=== PATIENT | male | born 1955 | race African-American/Black ===

== ENCOUNTER → 2017-04-04 | Outpatient (CLI) | payer MEDICARE, OTHER ==
--- NOTE | 2017-04-04 08:38 | US ---
EXAMINATION TYPE: US gallbladder DATE OF EXAM: 04/04/2017 COMPARISON: NONE CLINICAL HISTORY: R10.84 Abd Pain. Rt sided pain x 6 months EXAM MEASUREMENTS: Liver Length: 15.8 cm Gallbladder Wall: 0.2 cm CBD: 0.4 cm Right Kidney: 9.6 x 4.9 x 4.7 cm Pancreas: wnl Liver: wnl Gallbladder: fundal fold seen, wnl Evidence for sonographic Hicks's sign: no CBD: wnl Right Kidney: 2.8cm simple appearing cyst seen Limited views of the pancreas are normal. The liver is normal in size without biliary dilatation. The gallbladder is unremarkable without biliary dilatation. The gallbladder wall measures 2.6 mm. The distal common hepatic duct measures 3.8 cm. There is a simple appearing, 2.8 cm cyst seen in the upper pole of the right kidney. IMPRESSION: SIMPLE APPEARING RIGHT RENAL CYST.
== END | disposition home or self-care (01) ==
LOC: RADUSWWP 07:59
PROVIDERS: ATTEND Family Medicine
DX: N28.1 Cyst of kidney, acquired (principal)
CPT/HCPCS: 76705

== ENCOUNTER → 2018-01-08 | Outpatient (CLI) | payer MEDICARE ==
--- NOTE | 2018-01-08 13:24 | CT ---
EXAMINATION TYPE: CT brain wo con DATE OF EXAM: 01/08/2018 COMPARISON: NONE HISTORY: Patient complains of headache and left side neck and arm pain. CT DLP: 750.9 mGycm Automated exposure control for dose reduction was used. FINDINGS: Mild generalized degenerative change. There is low-attenuation within the right occipital lobe compat ible with remote ischemia. Calvarium intact. No midline shift or acute hemorrhage. Faint periventricular low attenuation is nons pecific. Likely in the basis of remote microvascular ischemia. Changes of chronic sinusitis noted. IMPRESSION: MILD DEGENERATIVE CHANGE. THERE IS EVIDENCE OF REMOTE ISCHEMIA INVOLVING THE RIGHT OCCIPITAL LOBE. RE COMMEND MRI FOLLOW-UP.
--- NOTE | 2018-01-08 16:56 | XR ---
EXAMINATION TYPE: XR cervical spine comp DATE OF EXAM: 01/08/2018 COMPARISON: NONE HISTORY: 62-year-old male left arm numbness, cervicalgia TECHNIQUE: 6 views FINDINGS: Multilevel facet and uncovertebral joint arthropathy is present. Moderate bony neuroforaminal narrowi ng on the right at C5-C6. Mild bony neuroforaminal narrowing on the left at C4-C5, C5-C6, and C6-C7. Moderate endplate spondylosis C5-C6. Alignment shows grade 1 retrolisthesis at C5-C6. Otherwise, sg cory of the alignment is maintained. Normal odontoid view. IMPRESSION: 1. Moderate endplate spondylosis at C5-C6 and moderate to advanced uncovertebral joint/facet arthropa thy throughout. 2. Changes result in moderate right-sided neuroforaminal stenosis at C5-C6 and mild at multiple level s in the mid to lower cervical spine 3. grade 1 retrolisthesis at C5-C6.
== END | disposition home or self-care (01) ==
LOC: RADCTMAIN 12:20
PROVIDERS: ATTEND Physician Assistant
DX: M99.71 Connective tissue and disc stenosis of intervertebral foramina of cervical region (principal); M43.12 Spondylolisthesis, cervical region; M47.812 Spondylosis without myelopathy or radiculopathy, cervical region; M46.82 Other specified inflammatory spondylopathies, cervical region; G31.9 Degenerative disease of nervous system, unspecified
CPT/HCPCS: 70450; 72050

== ENCOUNTER 2018-02-17 13:29 | Inpatient (IN) | payer MEDICARE ==
[2018-02-17] MEDS ORDERED: SODIUM CHLORIDE 0.9% 1,000 ML IV STA ×2 (13:32)
[2018-02-17] MEDS ORDERED: AMIODARONE 450 MG in DEXTROSE 5% IN WATER 250 ML IV ONE ×2 (13:32)
[2018-02-17] MEDS ORDERED: DEXTROSE 5% IN WATER 100 ML with AMIODARONE 150 MG IV ONE (13:32)
--- NOTE | 2018-02-17 13:47 | XR ---
EXAMINATION TYPE: XR chest 1V portable DATE OF EXAM: 02/17/2018 COMPARISON: Chest x-ray June 10, 2016 HISTORY: Dyspnea TECHNIQUE: Single AP portable frontal view of the chest is obtained. FINDINGS: Sternal wires with metallic cardiac valve is redemonstrated. There is more prominent cardi omegaly. There is new mild to moderate central vascular congestion. There is no suspicious new focal airspace opacity, pleural effusion, or pneumothorax. The osseous structures are intact. IMPRESSION: Suspect CHF exacerbation as there is more prominent cardiomegaly with new mild to modera te central vascular congestion.
[2018-02-17] MEDS ORDERED: ONDANSETRON 4 MG/2 ML VIAL IVP STA (13:48)
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
[2018-02-17 13:51] LABS: Glucose,Whole Blood 207 mg/dL (75-99)
[2018-02-17 13:53] LABS: Basophils % (A) 0 %; Eosinophils # (A) 0.3 k/uL (0-0.7); Eosinophils % (A) 4 %; HCT 44.5 % (39.0-53.0); HGB 14.4 gm/dL (13.0-17.5); Lymphocytes # (A) 3.9 k/uL (1.0-4.8); Lymphocytes % (A) 44 %; MCH 28.5 pg (25.0-35.0); MCHC 32.5 g/dL (31.0-37.0); MCV 87.9 fL (80.0-100.0); Mean Platelet Volume 7.5; Monocytes # (A) 0.6 k/uL (0-1.0); Monocytes % (A) 6 %; Neutrophils # (A) 3.9 k/uL (1.3-7.7); Neutrophils % (A) 44 %; Platelet Count 212 k/uL (150-450); RBC 5.06 m/uL (4.30-5.90); RDW 14.2 % (11.5-15.5); WBC 8.9 k/uL (3.8-10.6)
[2018-02-17 14:05] LABS: Albumin 4.6 g/dL (3.5-5.0); Calcium 9.4 mg/dL (8.4-10.2); Magnesium 2.2 mg/dL (1.6-2.3); Phosphorus 4.7 mg/dL (2.5-4.5); Potassium 3.4 mmol/L (3.5-5.1); Total Bilirubin 1.2 mg/dL (0.2-1.3); Total Protein 7.8 g/dL (6.3-8.2)
[2018-02-17] MEDS ORDERED: ASPIRIN 81 MG PO STA (14:07)
[2018-02-17] MEDS ORDERED: POTASSIUM CHLORIDE 20 MEQ in WATER FOR INJECTION 1 100ML.BAG IVPB STA (14:09)
[2018-02-17 14:25] LABS: INR 1.2 (<1.2); Partial Thromboplastin Time 22.1 sec (22.0-30.0); Prothrombin Time 11.4 sec (9.0-12.0)
[2018-02-17 14:28] LABS: Creatine Kinase MB 2.4 ng/mL (0.0-2.4)
[2018-02-17 14:35] LABS: D-Dimer 1.53 mg/L FEU (<0.60)
[2018-02-17] MEDS ORDERED: HEPARIN SODIUM,PORCINE 5,000 UNIT/ML 1 ML VIAL IV STA (14:38)
[2018-02-17 14:41] LABS: Troponin I 0.042 ng/mL (0.000-0.034)
[2018-02-17] MEDS ORDERED: NITROGLYCERIN SL TABS 0.4 MG TAB SUBLINGUAL PRN ×2 (14:43→14:46)
[2018-02-17] MEDS ORDERED: ASPIRIN 325 MG TAB PO STA (14:43)
[2018-02-17] MEDS ORDERED: ATORVASTATIN 80 MG TAB PO STA (14:43)
[2018-02-17] MEDS ORDERED: SODIUM CHLORIDE 0.9% 1,000 ML in EMPTY BAG 1 BAG IV ONE (14:43)
[2018-02-17] MEDS ORDERED: HEPARIN SODIUM,PORCINE 5,000 UNIT/ML 1 ML VIAL IV PRN (14:46)
[2018-02-17] MEDS ORDERED: LIDOCAINE 2% INJ 20 MG/ML (20 ML MDV) ONE (14:47)
[2018-02-17] MEDS ORDERED: HEPARIN SOD,PORK IN 0.45% NACL 25,000 UNIT in 0.45% NACL 1 500ML.BAG IV SCH (15:00)
[2018-02-17] MEDS ORDERED: MIDAZOLAM 2 MG/2 ML VIAL ONE (15:00)
[2018-02-17] MEDS ORDERED: diphenhydrAMINE 50 MG/ML 1 ML VIAL ONE (15:00)
[2018-02-17] MEDS ORDERED: LIDOCAINE 2% INJ 20 MG/ML SQ ONE (15:25)
[2018-02-17] MEDS ORDERED: diphenhydrAMINE 50 MG/ML 1 ML VIAL IVP ONE (15:26)
[2018-02-17] MEDS ORDERED: MIDAZOLAM 2 MG/2 ML VIAL IVP ONE (15:27)
[2018-02-17] MEDS ORDERED: IOPAMIDOL-370 100ML BTL INJ ONE (15:47)
[2018-02-17] MEDS ORDERED: MORPHINE SULF 5MG/10ML VL IV ONE (15:51)
[2018-02-17] MEDS ORDERED: IOPAMIDOL-370 50ML BTL INJ ONE (15:51)
[2018-02-17] MEDS ORDERED: SODIUM CHLORIDE 0.9% 500 ML IV ONE (15:54)
[2018-02-17] MEDS ORDERED: SODIUM CHLORIDE 0.9% 1,000 ML IV ONE (15:54)
[2018-02-17] MEDS ORDERED: RX INFO: IV CONTRAST WAS GIVEN 1 EACH MISC MISCELLANE PRN (16:03)
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
[2018-02-17 16:43] LABS: Glucose,Whole Blood 144 mg/dL (75-99)
--- NOTE | 2018-02-17 17:17 | CC ---
CARDIAC CATHETERIZATION REPORT DATE OF SERVICE: 02/17/2018 PROCEDURE: Left heart catheterization, coronary angiography, selective injection of bypass grafts and left ventriculography. PERFORMED BY: Dr. Titi Bush. Moderate conscious sedation time was 37 minutes. Patient was administered Versed, Benadryl and morphine. His oxygen saturation, hemodynamics and EKG were monitored closely. CLINICAL INFORMATION: Mr. Bo Asher is a 62-year-old gentleman with a known history of acute inferior DE in October of 2015 when I performed stenting of circumflex. He had significant mitral regurgitation. He was transferred to [facility], underwent mitral valve replacement with a tissue valve and 2 separate vein grafts to the 2 branches of distal circumflex, even though the vessel was patent. Since then he has done fairly well and his ejection fraction actually improved up to 45% to 50% and was doing well with a decent functional capacity. However, he had a cardiac arrest at home. EMS was called. He was found in ventricular fibrillation. He was shocked and resuscitated with full neurological recovery and was brought to the emergency room. He was seen and evaluated by Dr. Mcpherson and advised prompt cardiac catheterization to rule out ischemia as a cause of his cardiac arrest. The other possibility was a scar-based situation. Risks, benefits and options were explained to the patient. PROCEDURE NOTE: Under local anesthesia and strict aseptic precautions, a 6-[place] introducer was placed in the right femoral artery. Using standard Harley catheters I performed coronary angiography and a modified AR catheter was used to perform selective coronary angiography of the 2 bypass grafts. A pigtail catheter was used to perform LV gram. The catheter and sheath was taken out and a Perclose device used to secure hemostasis, and he was sent to the room in stable condition. CARDIAC CATHETERIZATION FINDINGS: The left ventricular end-diastolic pressure was about 20 mmHg without any gradient across the aortic valve. CORONARY ANGIOGRAPHY FINDINGS: RIGHT CORONARY ARTERY: This is a nondominant small vessel. It supplies a limited amount of myocardium. No significant disease. LEFT MAIN CORONARY ARTERY: This is a short, patent, disease-free vessel that bifurcates into LAD and circumflex. LEFT ANTERIOR DESCENDING CORONARY ARTERY: This is a good-caliber vessel. It extends along the anterior wall and gives off a diagonal branch and small septal branches. It runs all the way to the apex, supplying a sizable amount of myocardium. The mid LAD has a long smooth narrowing of about 30%, but no significant disease is noted. The entire LAD has minor irregularities; no significant disease. The diagonal and septals are free of significant disease. Mid LAD has a long smooth 30% to 40% narrowing. LEFT POSTERIOR CIRCUMFLEX CORONARY ARTERY: Technically a dominant vessel that gives off an obtuse marginal that runs laterally. This vessel was stented. The stented segment is patent. Beyond it the vessel appears to be of small caliber, has a narrowing of about 60% to 70% just beyond the stented segment. There appears to be some competitive flow. The groove branch which continues as a posterior lateral is also open, but distally there is diffuse disease in the posterolateral branch and there is some competitive flow noted. Both branches of circumflex were grafted. SAPHENOUS VEIN GRAFT TO THE PLV BRANCH OF CIRCUMFLEX: This graft is widely patent. Beyond the insertion site there is mild diffuse disease in the opacified circumflex system. There is diffuse disease but no significant stenosis, and the graft is widely patent. SAPHENOUS VEIN GRAFT TO THE PDA BRANCH OF CIRCUMFLEX: This graft is widely patent and opacifies the entire PDA, has no significant disease, has only minor irregularities. The PDA appears to have mild diffuse disease. Both the vein grafts are widely patent. LEFT VENTRICULOGRAM: This was performed in 30-degree GOMES projection and revealed left ventricle which is mildly enlarged with akinesia involving the inferobasal and mid inferior wall. The inferoapical wall contracts well. Anteroapical wall contracts well. Ejection fraction is 40%. There is no mitral regurgitation through the mitral valve bioprosthesis. FINAL IMPRESSION: This patient is status post cardiac arrest with observed witnessed documented ventricular fibrillation, was shocked and resuscitated. He has a patent RCA, which is nondominant, patent LAD with a 30% long smooth narrowing, and patent circumflex with a distal disease involving the stented segment. However, both his circumflex grafts are widely patent. He has ejection fraction of 40% with akinesia involving the inferobasal and mid inferior wall. Ejection fraction is 40% with elevated filling pressures. RECOMMENDATION: I am recommending that we continue medical therapy and seek electrophysiology evaluation for possible device and ablation if a focus is found. Discussed my thoughts in detail with the patient, his and also Dr. Araiza. MMODL / IJN: [id number] /
[2018-02-17] MEDS: SPIRONOLACTONE 25 MG TAB PO SCH (17:57)
[2018-02-17] MEDS: SODIUM CHLORIDE 0.9% 1,000 ML IV SCH (17:57)
[2018-02-17 18:56] VITALS: BMI 30.4
[2018-02-17 20:49] LABS: Creatine Kinase MB 13.6 ng/mL (0.0-2.4); Troponin I 3.15 ng/mL (0.000-0.034)
[2018-02-17] MEDS: HEPARIN SODIUM,PORCINE 5,000 UNIT/ML 1 ML VIAL SQ SCH (20:54)
[2018-02-17] MEDS: METOPROLOL TARTRATE 25 MG TAB PO SCH (21:54)
--- NOTE | 2018-02-17 22:47 | HP ---
HISTORY AND PHYSICAL DATE OF SERVICE: 02/17/2017. CHIEF COMPLAINT: Cardiac arrest. HISTORY OF PRESENT ILLNESS: This 62-year-old gentleman with a past medical history of multiple medical problems, including atrial ablation, history of CAD, CABG, stent, history of cardiac valve replacement, history of hypertension, hyperlipidemia, history of myocardial infarction being followed by Dr. Norman Hightower in the outpatient setting had a cardiac arrest at home. The patient became unresponsive. The girlfriend performed CPR. EMS saw the patient showed ventricular fibrillation cardioverted into normal sinus rhythm. The patient also had episode of atrial ablation. The patient came to [facility], admitted for further evaluation and treatment. A cardiac cath was done by Cardiology and the cardiac cath showed multiple findings, including ejection fraction 40% with akinesis of inferobasal and anterior inferior wall and patent RCA and a patent LAD with a 30% narrowing and a patent circumflex with distal disease involving the stented segment. The other grafts are patent. There is no history of any headache, any seizures. No history of any hematochezia, melena, shortness of breath at this time. Patient has blood rushing to the head as well as some tingling of the neck and shoulder for the previous few days. PAST MEDICAL HISTORY: CAD, CABG, stent, history of atrial fibrillation, history of hypertension, hyperlipidemia, history of myocardial infarction. MEDICATIONS PRIOR TO ADMISSION: Include: 1. Trazodone 50 mg q.h.s. 2. Ultram 50 mg q.i.d. p.r.n. 3. Cialis 5 mg p.o. daily. 4. 40 mg p.o. daily. 5. Multivitamin 1 orally daily. 6. Lopressor 25 mg b.i.d. 7. Plavix 75 mg p.o. daily .. 8. Bumex 2 mg daily. 9. Lipitor 20 mg at bedtime. 10.Aspirin 81 mg daily. ALLERGIES: None. FAMILY HISTORY: History of CVA, TIA, hyperlipidemia, history of colon cancer in the family. SOCIAL HISTORY: History of smoking. No history of current smoking or alcohol intake. REVIEW OF SYSTEMS: ENT: No diminished hearing, diminished vision. CARDIOVASCULAR: As mentioned earlier. RESPIRATORY: As mentioned earlier. GI: No nausea or vomiting. : No dysuria. NERVOUS: No numbness or weakness. ALLERGY/IMMUNOLOGY: No asthma or hay fever. MUSCULOSKELETAL: As mentioned earlier. HEMATOLOGY/ONCOLOGY: No history of anemia. ENDOCRINE: No history of diabetes, hypothyroidism. CONSTITUTIONAL: As mentioned earlier. DERMATOLOGY: Negative. RHEUMATOLOGY: Negative. PSYCHIATRY: As mentioned earlier. PHYSICAL EXAMINATION: Alert and oriented x3. Pulse 59, blood pressure 133/83, respiration 24, temperature normal. Pulse ox 100% on 2L. HEENT: Conjunctivae normal. Oral mucosa moist. NECK: No jugular venous distention. No carotid bruits. No lymph node enlargement. CARDIOVASCULAR: S1, S2 muffled. No S3, S4. RESPIRATORY: Breath sounds diminished in the bases. No rhonchi. No crackles. ABDOMEN: Soft, nontender. No mass palpable. LEGS: No edema. No swelling. NERVOUS SYSTEM: Higher functions as mentioned earlier. Moves all 4 limbs. No focal motor or sensory deficits. LYMPHATIC: No lymphadenopathy in neck or axillae. SKIN: No ulcer, rash or bleeding. JOINTS: No acute deformity. LABS: INR is 1.2. Sodium 141, potassium 3.2, creatinine is 1.47 and phosphorus 4.7. AST is 86. Creatine kinase is 641. Troponin 0.042 and 3.150. ASSESSMENT: 1. Out of hospital cardiac arrest secondary to ventricular fibrillation. 2. Possible cardiomyopathy, ejection fraction 40%, chronic systolic dysfunction. 3. Cardiac status post cardiac catheterization and [id number] coronary disease. 4. History of coronary artery disease, coronary artery bypass graft, stent. 5. Troponin 3.150, possibly secondary to cardiac catheterization and CPR. 6. Increased creatinine 1.47. 7. Chronic kidney disease stage 3. 8. History of atrial fibrillation. 9. History of hypertension. 10.Hyperlipidemia. 11.Myocardial infarction. 12.History of bilateral cataracts. 13.History of peripheral vascular disease. 14.Remote history of nicotine dependence. RECOMMENDATIONS AND DISCUSSION: In this 62-year-old gentleman who presented with multiple complex medical issues , will monitor the patient closely, continue the current medical management and symptomatic treatment, continue with antiplatelet agents. Otherwise, continue with the rest of the medications. Continue with Lipitor. Closely follow with Cardiology and guarded prognosis because of multiple complex medical issues and we will recommend repeat labs and continue to monitor. The prognosis is guarded because of multiple complex medical issues. Further recommendations to follow. A copy of this dictation will be forwarded to Dr. Norman Hightower, who is the primary physician. MMODL / IJN: [id number] / MTDD
[2018-02-17] MEDS: DOCUSATE 100 MG CAP PO SCH (23:08)
[2018-02-18] MEDS: ALPRAZolam 0.25 MG TAB PO PRN ×2 (02:25→10:42)
[2018-02-18 02:33] LABS: Albumin 3.7 g/dL (3.5-5.0); Calcium 8.6 mg/dL (8.4-10.2); Magnesium 2.1 mg/dL (1.6-2.3); Potassium 4.3 mmol/L (3.5-5.1); Total Bilirubin 0.7 mg/dL (0.2-1.3); Total Protein 6.5 g/dL (6.3-8.2)
[2018-02-18 02:35] LABS: Basophils % (A) 0 %; Eosinophils # (A) 0.1 k/uL (0-0.7); Eosinophils % (A) 1 %; HCT 43.3 % (39.0-53.0); HGB 14.1 gm/dL (13.0-17.5); Lymphocytes # (A) 1.3 k/uL (1.0-4.8); Lymphocytes % (A) 14 %; MCH 28.4 pg (25.0-35.0); MCHC 32.7 g/dL (31.0-37.0); MCV 87.1 fL (80.0-100.0); Mean Platelet Volume 7.4; Monocytes # (A) 0.6 k/uL (0-1.0); Monocytes % (A) 6 %; Neutrophils # (A) 6.8 k/uL (1.3-7.7); Neutrophils % (A) 77 %; Platelet Count 181 k/uL (150-450); RBC 4.97 m/uL (4.30-5.90); RDW 14.3 % (11.5-15.5); WBC 8.8 k/uL (3.8-10.6)
[2018-02-18 03:21] LABS: Troponin I 2.92 ng/mL (0.000-0.034)
[2018-02-18] MEDS: SODIUM CHLORIDE 0.9% 1,000 ML IV SCH ×2 (05:35→16:10)
--- NOTE | 2018-02-18 07:59 | PN ---
PROGRESS NOTE Mr. Asher is a 62-year-old male status post coronary artery bypass grafting, status post mitral valve replacement, who presented with V fib arrest. He underwent emergent cardiac catheterization yesterday, was found to have patent graft to the right PDA and the PLV. His ejection fraction by left ventriculogram was about 40%. He is feeling well today. He has some soreness in the chest. He denies any significant breathing. He denies any dizziness or palpitation. He continued to be on IV amiodarone drip, aspirin 81 mg daily, Plavix 75 mg daily, Lipitor 40 mg daily, metoprolol tartrate 25 mg twice a day, losartan 50 mg daily, spironolactone 25 mg daily. PHYSICAL EXAMINATION: Blood pressure 114/70 with the heart rate in 50s. LUNGS: Clear. HEART: Regular rate and rhythm. S1, S2. No S3. No rub. With a systolic murmur. ABDOMEN: Soft, obese, nontender. EXTREMITIES: No edema. RIGHT GROIN: No hematoma. LAB DATA: Lab data revealed BUN and creatinine 16 and 1.16, potassium 4.3. His peak troponin 3.15. His cholesterol is 151, LDL of 81. IMPRESSION: 1. Status post cardiac arrest with ventricular fibrillation. No evidence of occlusion of graft, raising the possibility of ventricular tachycardia related to the scar. 2. Status post coronary artery bypass grafting and mitral valve replacement. 3. Ischemic cardiomyopathy. 4. Hypertension. 5. Hyperlipidemia. RECOMMENDATION: I will switch him to oral amiodarone. We will proceed with ICD implantation tomorrow and possible down the road he may be a candidate for VT ablation. MMODL / IJN: [id number] /
[2018-02-18] MEDS: BUMETANIDE 1 MG TAB PO SCH (08:43)
[2018-02-18] MEDS: AMIODARONE 200 MG TAB PO SCH ×2 (08:43→20:23)
[2018-02-18] MEDS: ASPIRIN 81 MG PO SCH (08:44)
[2018-02-18] MEDS: HEPARIN SODIUM,PORCINE 5,000 UNIT/ML 1 ML VIAL SQ SCH ×2 (08:44→21:22)
[2018-02-18] MEDS: CLOPIDOGREL 75 MG TAB PO SCH (08:44)
[2018-02-18] MEDS: DOCUSATE 100 MG CAP PO SCH ×2 (08:44→21:22)
[2018-02-18] MEDS: SPIRONOLACTONE 25 MG TAB PO SCH (08:45)
[2018-02-18] MEDS: LOSARTAN 50 MG TAB PO SCH (08:45)
[2018-02-18] MEDS: METOPROLOL TARTRATE 25 MG TAB PO SCH ×3 (08:45→22:22)
[2018-02-18] MEDS ORDERED: ASPIRIN 81 MG PO SCH (09:00)
[2018-02-18] MEDS ORDERED: ASPIRIN 325 MG TAB PO SCH (09:00)
--- NOTE | 2018-02-18 10:54 | ECHOF ---
Referral Reason:co MEASUREMENTS -------- HEIGHT: 175.3 cm WEIGHT: 96.2 kg BP: RVIDd: 4.0 cm (< 3.3) IVSd: 1.1 cm (0.6 - 1.1) LVIDd: 5.3 cm (3.9 - 5.3) LVPWd: 1.0 cm (0.6 - 1.1) IVSs: 1.4 cm LVIDs: 4.5 cm LVPWs: 1.0 cm LA Diam: 5.4 cm (2.7 - 3.8) LAESV Index (A-L): 59.96 ml/m Ao Diam: 3.9 cm (2.0 - 3.7) AV Cusp: 1.4 cm (1.5 - 2.6) LA Diam: 5.3 cm (2.7 - 3.8) MV EXCURSION: 25.597 mm (> 18.000) MV EF SLOPE: 77 mm/s (70 - 150) EPSS: 0.2 cm MV E Bjorn: 1.58 m/s MV DecT: 487 ms MV A Bjorn: 0.38 m/s MV E/A Ratio: 4.19 RAP: 5.00 mmHg RVSP: 15.81 mmHg FINDINGS -------- Sinus rhythm. This was a technically adequate study. The left ventricular size is normal. Overall left ventricular systolic function is moderate-severel y impaired with, an EF between 30 - 35 %. Anterseptal Hypokinesis Inferior Hypokinesis Posterio r Hypokinesis. Ewing Hypokinesis. The right ventricle is moderate to severely enlarged. The left atrium is moderately dilated. LA is severely dilated >40 ml/m2 The right atrial size is normal. The aortic valve is trileaflet, and appears structurally normal. No aortic stenosis or regurgitation. The peak and mean MV gradients are 16.07mmHg 4.30mmHg as measured by doppler. There is mild alda-pr osthetic regurgitation of the bioprosthetic mitral valve. Moderate tricuspid regurgitation present. There is no evidence of pulmonary hypertension. The rig ht ventricular systolic pressure, as measured by Doppler, is 15.81mmHg. Trace/mild (physiologic) pulmonic regurgitation. The aortic root size is normal. There is no pericardial effusion. CONCLUSIONS -------- 1. The left ventricular size is normal. 2. Overall left ventricular systolic function is moderate-severely impaired with, an EF between 30 - 35 %. 3. Anterseptal Hypokinesis 4. Inferior Hypokinesis 5. Posterior Hypokinesis. 6. Ewing Hypokinesis. 7. The right ventricle is moderate to severely enlarged. 8. The left atrium is moderately dilated. 9. LA is severely dilated >40 ml/m2 10. The aortic valve is trileaflet, and appears structurally normal. No aortic stenosis or regurgitat ion. 11. The peak and mean MV gradients are 16.07mmHg 4.30mmHg as measured by doppler. 12. There is mild alda-prosthetic regurgitation of the bioprosthetic mitral valve. 13. Moderate tricuspid regurgitation present. 14. There is no evidence of pulmonary hypertension. 15. The right ventricular systolic pressure, as measured by Doppler, is 15.81mmHg. 16. Trace/mild (physiologic) pulmonic regurgitation. 17. The aortic root size is normal. 18. consider HOLLEY if clinically indicated for optimal evaluation [employer]UL[employer] FARMWORKER: Jill Llanes RDCS
[2018-02-18] MEDS: MULTIVITAMINS, THERA 1 EACH TAB PO SCH (13:38)
[2018-02-18] MEDS ORDERED: SODIUM CHLORIDE 0.9% 1,000 ML IV SCH (14:45)
[2018-02-18] MEDS: ALPRAZolam 0.5 MG TAB PO PRN (16:10)
[2018-02-18] MEDS: ATORVASTATIN 40 MG TAB PO SCH (20:23)
--- NOTE | 2018-02-18 20:42 | PN ---
PROGRESS NOTE DATE OF SERVICE: 02/18/2018 This 62-year-old gentleman admitted with cardiac arrest also had possible cardiomyopathy. Patient also had a cardiac catheterization showing mild to moderate coronary artery disease. The patient is being closely monitored for possible AICD implantation. A 2D echo with Doppler done by Cardiology today showed ejection fraction about 30% to 35% and hypokinesis also. There is no history of any fever, rigor or chills. Past medical history reviewed. REVIEW OF SYSTEMS: CARDIOVASCULAR SYSTEM: As mentioned earlier. RESPIRATORY SYSTEM: No cough, hemoptysis. GI: As mentioned earlier. : No dysuria or retention. NERVOUS SYSTEM: No numbness, weakness. CURRENT MEDICATIONS: Reviewed. They include: 1. Xanax 0.5 q.6 p.r.n. 2. Cordarone 400 mg p.o. b.i.d. 3. Aspirin 81 mg daily. 4. Lipitor 40 mg at bedtime. 5. Bumex 2 mg p.o. daily. 6. Plavix 75 mg p.o. daily. 7. Colace 100 mg p.o. b.i.d. 8. Heparin subcutaneously b.i.d. 9. Cozaar 50 mg p.o. daily. 10.Docusate 100 mg p.o. b.i.d. 11.Multivitamins 1 p.o. daily. 12.Nitrostat. 13.Aldactone. 14.Restoril. PHYSICAL EXAMINATION: Patient is alert and oriented x3. Pulse is 58, blood pressure 109/72, respiration 18, temperature normal, pulse ox 97% on room air. HEENT: Conjunctivae normal. NECK: No jugular venous distention. CARDIOVASCULAR SYSTEM: S1, S2 muffled. RESPIRATORY SYSTEM: Breath sounds diminished at the bases. A few scattered rhonchi. No crackles. ABDOMEN: Soft, non-tender. No mass palpable. LEGS: No edema. No swelling. NERVOUS SYSTEM: No focal deficit. LABS: CBC within normal limits. CO2 is 20. Glucose is 135. Troponin 2.920. ASSESSMENT: 1. [id number] cardiac arrest secondary to ventricular fibrillation. 2. Possible cardiomyopathy, ischemic cardiomyopathy, ejection fraction 40%, chronic systolic dysfunction. 3. Cardiac catheterization, status post, showing mild to moderate coronary artery disease with patent grafts. 4. History of coronary artery disease, coronary artery bypass grafting, stents. 5. Troponin 3.150, possibly secondary to CPR. 6. Increased creatinine at 1.47 with chronic kidney disease, stage III. 7. History of atrial fibrillation. 8. Hypertension. 9. Hyperlipidemia. 10.History of myocardial infarction. 11.History of bilateral cataracts. 12.History of peripheral vascular disease. 13.Remote history of nicotine dependence. RECOMMENDATIONS AND DISCUSSION: I recommend to continue current medications, continue with symptomatic treatment. Continue with the beta blockers. Monitor closely. Follow closely with Cardiology. Possibly AICD. Guarded prognosis because of multiple complex medical issues. Further recommendations to follow. MMODL / IJN: [id number] /
[2018-02-18] MEDS ORDERED: ATORVASTATIN 80 MG TAB PO SCH (21:00)
[2018-02-19] MEDS: TEMAZEPAM 15 MG CAP PO PRN (00:02)
[2018-02-19 04:50] LABS: Basophils % (A) 0 %; Eosinophils # (A) 0.2 k/uL (0-0.7); Eosinophils % (A) 3 %; Lymphocytes # (A) 2.6 k/uL (1.0-4.8); Lymphocytes % (A) 31 %; MCHC 33.3 g/dL (31.0-37.0); MCV 87.1 fL (80.0-100.0); Mean Platelet Volume 7.2; Monocytes # (A) 0.7 k/uL (0-1.0); Monocytes % (A) 9 %; Neutrophils # (A) 4.5 k/uL (1.3-7.7); Neutrophils % (A) 55 %; Platelet Count 177 k/uL (150-450); RBC 4.48 m/uL (4.30-5.90); RDW 14.5 % (11.5-15.5); WBC 8.1 k/uL (3.8-10.6)
[2018-02-19 05:01] LABS: Albumin 3.6 g/dL (3.5-5.0); Potassium 3.6 mmol/L (3.5-5.1); Total Bilirubin 0.4 mg/dL (0.2-1.3); Total Protein 6.3 g/dL (6.3-8.2)
[2018-02-19] MEDS ORDERED: Potassium Replacement Protocol 1 EACH MISC MISCELLANE PRN (05:21)
[2018-02-19] MEDS: POTASSIUM CHLORIDE 10 MEQ in WATER FOR INJECTION 1 100ML.BAG IVPB SCH ×2 (05:49→06:58)
[2018-02-19] MEDS ORDERED: ceFAZolin IN SWFI 2 GM/20 ML SYRINGE IVP ONE (07:45)
[2018-02-19] MEDS ORDERED: ceFAZolin 1,000 MG in SODIUM CHLORIDE 0.9% IRRIGATIO 250 ML IRRIGATION ONE (07:45)
[2018-02-19] MEDS ORDERED: fentaNYL (PF) 50 MCG/ML 2 ML AMP ONE (08:23)
[2018-02-19] MEDS ORDERED: IV FLUID CONTINUATION 1,000 ML IV ONE (08:23)
[2018-02-19] MEDS ORDERED: PROPOFOL 10 MG/ML 20 ML VIAL IV ONE (08:23)
[2018-02-19] MEDS ORDERED: MIDAZOLAM 2 MG/2 ML VIAL ONE (08:23)
[2018-02-19] MEDS ORDERED: IOPAMIDOL-250 50ML BTL IV ONE (08:40)
[2018-02-19] MEDS ORDERED: LIDOCAINE 1% INJ 10MG/ML (20 ML MDV) ONE (08:50)
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
[2018-02-19] MEDS ORDERED: LIDOCAINE 1% INJ 10MG/ML (20 ML MDV) SQ ONE (09:05)
--- NOTE | 2018-02-19 09:10 | PN ---
PROGRESS NOTE Mr. Asher is a 62-year-old male with a history of coronary artery disease, history of ischemic cardiomyopathy, status post mitral valve replacement, who presented with a ventricular tachycardia, cardiac arrest. He underwent cardiac catheterization, was found to have patent grafts. His echocardiogram showed ejection fraction of 30% to 35% with a moderate tricuspid regurgitation and mild periprosthetic regurgitation. He is doing well since yesterday. His breathing has been stable. He denies any dizziness or palpitation. He denies any nausea. He continued be on amiodarone 400 mg twice a day, aspirin once a day, Lipitor 40 mg daily, Plavix 75 mg daily, losartan 50 mg daily, metoprolol tartrate 25 mg twice a day, and spironolactone 25 mg daily. PHYSICAL EXAMINATION: Blood pressure is 127/80 with the heart rate in 50s. LUNGS: Clear. HEART: Regular rate and rhythm. S1, S2. No S3, no rub with a systolic murmur. ABDOMEN: Soft, nontender. EXTREMITIES: No edema. LAB DATA: Lab data revealed a BUN and creatinine 19 and 1.3, potassium 3.6, hemoglobin of 13. His peak troponin was 3.1. IMPRESSION: 1. Status post cardiac arrest with no evidence of acute ischemic event, most likely related to cardiomyopathy and prior scar. 2. Status post coronary artery bypass grafting and mitral valve replacement. 3. Ischemic cardiomyopathy. 4. Hyperlipidemia. RECOMMENDATION: The patient will proceed with ICD implantation today and depending on his progress, further recommendation will be made. MMODL / IJN: [id number] /
[2018-02-19] MEDS ORDERED: ACETAMINOPHEN TAB 325 MG TAB PO PRN (10:06)
[2018-02-19] MEDS ORDERED: ONDANSETRON 4 MG/2 ML VIAL IVP STA (10:43)
[2018-02-19] MEDS: AMIODARONE 200 MG TAB PO SCH ×3 (10:44→20:02)
[2018-02-19] MEDS: CLOPIDOGREL 75 MG TAB PO SCH ×2 (10:44→11:24)
[2018-02-19] MEDS: BUMETANIDE 1 MG TAB PO SCH ×2 (10:44→11:23)
[2018-02-19] MEDS: DOCUSATE 100 MG CAP PO SCH ×3 (10:44→20:02)
[2018-02-19] MEDS: ASPIRIN 81 MG PO SCH ×2 (10:44→11:24)
[2018-02-19] MEDS: LOSARTAN 50 MG TAB PO SCH ×2 (10:45→11:24)
[2018-02-19] MEDS: HEPARIN SODIUM,PORCINE 5,000 UNIT/ML 1 ML VIAL SQ SCH ×3 (10:45→20:02)
--- NOTE | 2018-02-19 10:45 | CE ---
CARDIAC ELECTROPHYSIOLOGY REPORT Mr. Asher is a 62-year-old male patient who presented with a out of hospital VF arrest without any inciting or triggering factor. He did not have an acute myocardial infarction. A dual-chamber ICD was implanted because he also has sick sinus syndrome, atrial fibrillation and heart rates during the daytime would drop below 50 beats a minute and on appropriate medical treatment. Patient brought to the EP lab in a fasting state. Written informed consent was obtained prior to the procedure. The left shoulder area was prepped and draped as per protocol; 1% lidocaine was used for local anesthesia. A 4 cm incision was made parallel to the deltopectoral groove, about 1.5 cm medial to it, the incision was carried down to the level of the pectoralis muscle. A subfascial pocket was made. Hemostasis was assured. The left axillary vein was accessed at two separate points under fluoroscopy, via appropriately-sized introducer sheaths, 2 leads were positioned in the right heart. The atrial lead was model #2088TC, 52 cm length and serial number [id number]. The P waves were 1.5-2 mV. Pacing threshold was 1 V at 0.5 milliseconds, pacing impedance of 530 ohms, 10 V test was negative. The RV lead was positioned in the RV apex. This was a [employer] model #[id number], 50 cm in length and serial #[id number]. R-waves 11.9 mV, pacing threshold 0.75 V at 0.5 milliseconds. Pacing impedance was 630 ohms, 10 V test was negative. Both leads were secured to the underlying pectoralis fascia using 2 nonabsorbable sutures. Pocket was irrigated with antibiotic solution. Leads were connected to the generator ([employer] model #FF4555, 36 Q serial #[id number]. The leads and generator were then placed in the subfascial pocket. The wound was closed in 3 layers and dressed per protocol. RESULTS: Successful dual-chamber ICD implantation for secondary prevention of sudden cardiac . FUTURE PLAN: Maximize heart failure and cardiomyopathy medications and will schedule for VT ablation in 2-3 months and gradually taper off amiodarone. MMODL / IJN: [id number] /
[2018-02-19] MEDS: SODIUM CHLORIDE 0.9% 1,000 ML IV SCH ×3 (10:47→10:49)
[2018-02-19] MEDS: METOPROLOL TARTRATE 25 MG TAB PO SCH (10:48)
[2018-02-19] MEDS: SPIRONOLACTONE 25 MG TAB PO SCH ×2 (10:48→11:24)
[2018-02-19] MEDS: MULTIVITAMINS, THERA 1 EACH TAB PO SCH (11:25)
[2018-02-19] MEDS: ACETAMINOPHEN IV (For NPO) 1,000 MG in EMPTY BAG 1 BAG IVPB ONE ×2 (11:25→15:36)
[2018-02-19] MEDS: HYDROcodone/APAP 5-325MG 1 EACH TAB PO PRN ×2 (13:00→22:07)
[2018-02-19] MEDS: ceFAZolin IN SWFI 2 GM/20 ML SYRINGE IVP SCH ×2 (13:48→20:02)
[2018-02-19] MEDS: ATORVASTATIN 40 MG TAB PO SCH ×2 (20:02→21:15)
[2018-02-20] MEDS: TEMAZEPAM 15 MG CAP PO PRN ×2 (01:01→20:40)
[2018-02-20] MEDS: ceFAZolin IN SWFI 2 GM/20 ML SYRINGE IVP SCH ×2 (01:04→09:30)
[2018-02-20 04:46] LABS: Basophils % (A) 0 %; Eosinophils # (A) 0.4 k/uL (0-0.7); Eosinophils % (A) 5 %; HCT 37.7 % (39.0-53.0); HGB 12.2 gm/dL (13.0-17.5); Lymphocytes # (A) 2.1 k/uL (1.0-4.8); Lymphocytes % (A) 27 %; MCH 28.4 pg (25.0-35.0); MCHC 32.4 g/dL (31.0-37.0); MCV 87.8 fL (80.0-100.0); Mean Platelet Volume 7.7; Monocytes # (A) 0.8 k/uL (0-1.0); Monocytes % (A) 10 %; Neutrophils # (A) 4.5 k/uL (1.3-7.7); Neutrophils % (A) 57 %; Platelet Count 144 k/uL (150-450); RDW 14.5 % (11.5-15.5); WBC 7.9 k/uL (3.8-10.6)
[2018-02-20 04:57] LABS: Albumin 3.3 g/dL (3.5-5.0); Calcium 8.7 mg/dL (8.4-10.2); Magnesium 1.8 mg/dL (1.6-2.3); Potassium 3.7 mmol/L (3.5-5.1); Total Bilirubin 0.6 mg/dL (0.2-1.3); Total Protein 6.1 g/dL (6.3-8.2)
[2018-02-20] MEDS: SODIUM CHLORIDE 0.9% 1,000 ML IV SCH ×3 (05:13→08:45)
[2018-02-20] MEDS ORDERED: Magnesium Replacement Protocol 1 EACH MISC MISCELLANE PRN (07:30)
--- NOTE | 2018-02-20 07:50 | XR ---
EXAMINATION TYPE: XR chest 2V DATE OF EXAM: 02/20/2018 HISTORY: Shortness of breath. COMPARISON: 02/17/2018 TECHNIQUE: Single view of the chest is submitted. FINDINGS: A dual-lead pacer is in place with distal leads within the right atrium and right ventricle respectiv mei. Cardiac valvular prosthesis is noted to be in place. There is continued cardiomegaly. Demonstrated are scattered senescent parenchymal change. There is no evidence for focal infiltrate. Hilar and mediastinal structures are within normal limits. Degenerative changes are seen of the dorsal spine. IMPRESSION: 1. Chronic changes without evidence for acute pulmonary disease.
[2018-02-20] MEDS ORDERED: POTASSIUM CHLORIDE ER 20 MEQ TAB.ER PO SCH (08:00)
[2018-02-20] MEDS: MAGNESIUM SULFATE-D5W PMX 1 GM in DEXTROSE/WATER 1 100ML.BAG IVPB SCH ×2 (08:40→11:03)
[2018-02-20] MEDS: DOCUSATE 100 MG CAP PO SCH ×2 (08:42→20:40)
[2018-02-20] MEDS: HEPARIN SODIUM,PORCINE 5,000 UNIT/ML 1 ML VIAL SQ SCH ×2 (08:42→20:40)
[2018-02-20] MEDS: BUMETANIDE 1 MG TAB PO SCH (08:42)
[2018-02-20] MEDS: SPIRONOLACTONE 25 MG TAB PO SCH (08:42)
[2018-02-20] MEDS: CLOPIDOGREL 75 MG TAB PO SCH (08:43)
[2018-02-20] MEDS: LOSARTAN 50 MG TAB PO SCH (08:43)
[2018-02-20] MEDS: AMIODARONE 200 MG TAB PO SCH ×2 (08:43→20:40)
[2018-02-20] MEDS: ASPIRIN 81 MG PO SCH (08:43)
[2018-02-20] MEDS: MULTIVITAMINS, THERA 1 EACH TAB PO SCH (08:44)
[2018-02-20] MEDS: METOPROLOL TARTRATE 25 MG TAB PO SCH ×3 (09:30→20:40)
--- NOTE | 2018-02-20 10:20 | PN ---
PROGRESS NOTE Mr. Asher is a 62-year-old male with known history of coronary artery disease, status post bypass grafting, mitral valve replacement, who presented with cardiac arrest and ventricular fibrillation requiring cardioversion. He underwent cardiac catheterization, revealed no evidence of significant progression of disease. Subsequently underwent an ICD implantation yesterday. He is doing well this morning. His breathing has been stable. He denies any dizziness, palpitation. He denies any nausea. He has continued to be on the monitor. He has no evidence of arrhythmia. He continued to be at this time on amiodarone 400 mg twice a day, aspirin once a day, Lipitor 40 mg daily, Bumex 2 mg daily, Plavix 75 mg daily, losartan 50 mg daily, metoprolol tartrate 25 mg twice a day, spironolactone 25 mg daily. He did not get his Lopressor yesterday prior to the device because of his bradycardia. PHYSICAL EXAMINATION: Blood pressure 139/80 with a heart rate in the 60s. LUNGS: Clear. HEART: Regular rate and rhythm, S1, S2. No S3 with a systolic murmur. ABDOMEN: Soft, nontender. EXTREMITIES: No edema. Pacemaker site clean. LAB DATA: Lab data revealed a hemoglobin of 12.2, BUN and creatinine 15 and 1.25, potassium 3.7. IMPRESSION: 1. Status post cardiac arrest with ventricular fibrillation. 2. Status post ICD implant. 3. Ischemic cardiomyopathy of moderate degree. 4. Status post bypass grafting. RECOMMENDATION: I will decrease the dose of his amiodarone. I will transfer him to telemetry floor. Increase his level of activity and he will receive his beta raya. If he remains stable, I would expect he should be able to be discharged home tomorrow. MMBLANCAL / KELSEAN: [id number] /
[2018-02-20 11:20] LABS: Appearance,Urine Clear (Clear); Bilirubin,Urine Negative (Negative); Blood,Urine Negative (Negative); Color,Urine Colorless; Glucose,Urine (UA) Negative (Negative); Ketones,Urine Negative (Negative); Leukocyte Esterase,Urine Negative (Negative); Nitrite,Urine Negative (Negative); Protein,Urine Negative (Negative); Specific Gravity,Urine 1.004 (1.001-1.035); Urobilinogen,Urine <2.0 mg/dL (<2.0)
[2018-02-20] MEDS: ALPRAZolam 0.5 MG TAB PO PRN (15:21)
--- NOTE | 2018-02-20 19:38 | PN ---
PROGRESS NOTE DATE OF SERVICE: 02/19/2018. This 62 -year-old gentleman was admitted with multiple medical problems, also had AICD placement at this time. Patient also had cardiac catheterization. No chest pain. No palpitations. No fever. EXAM: Alert and oriented x3. The pulse is 50. Blood pressure is 138/52, respiration 14, temperature 97.4, pulse ox 100% on room air. HEENT: Conjunctivae normal. Neck: No jugular venous distention. Cardiovascular: S1, S2. Respiration: Breath sounds diminished at the bases. A few scattered rhonchi. No crackles. Abdomen is soft, nontender. LEGS: No edema. No swelling. LABS: Reviewed. ASSESSMENT: 1. The patient out of hospital cardiac arrest secondary to ventricular fibrillation. 2. Possible cardiomyopathy, ischemic cardiomyopathy ejection fraction 40%. 3. Chronic systolic dysfunction. 4. Cardiac catheterization, status post showing [id number] coronary artery disease and patent grafts. 5. Coronary artery disease/coronary artery bypass grafting, stents. 6. Troponin 3.130, possibly secondary to CPR. 7. Creatinine 1.47, chronic kidney disease. 8. History of atrial fibrillation. 9. Hypertension. 10.AICD. 11.Hyperlipidemia. 12.History of myocardial infarction. RECOMMENDATIONS AND DISCUSSION: Recommend to continue current medications, symptomatic treatment. Continue beta blockers. Closely monitor with Cardiology. Further recommendations to follow. MMODL / IJN: [id number] /
--- NOTE | 2018-02-20 19:38 | PN ---
PROGRESS NOTE DATE OF SERVICE: 02/20/2018 This 62-year-old gentleman admitted with cardiac arrest also had AICD placement. The patient also had cardiomyopathy and cardiac catheterization. Grafts were found to be patent. No chest pain. No palpitations. No fever. Complains of some abdominal discomfort. On exam, alert and oriented x3. Pulse is 51, blood pressure 146/89, respiration 17, temperature 98.5, pulse ox 98% on room air. HEENT: Conjunctivae normal. NECK: No jugular venous distention. CARDIOVASCULAR SYSTEM: S1, S2 muffled. RESPIRATORY SYSTEM: Breath sounds diminished at the bases. No rhonchi. No crackles. ABDOMEN: Soft, non-tender. LEGS: No edema. No swelling. NERVOUS SYSTEM: No focal deficit. LABS: WBC 7.9, hemoglobin 12.2. CMP within normal limits. Albumin is 3.3. ASSESSMENT: 1. Iky-kf-jyujwudk cardiac arrest secondary to ventricular fibrillation. 2. Possible cardiomyopathy, ischemic cardiomyopathy, with ejection fraction 40% with chronic systolic dysfunction. 3. Cardiac catheterization, status post, showing mild to moderate coronary artery disease with patent grafts. 4. Coronary artery disease, coronary artery bypass grafting, stent. 5. Troponin 3.150, possibly secondary to CPR. 6. Status post automated implantable cardioverter defibrillator placement. 7. Increased creatinine to 1.47 with chronic kidney disease, stage III. 8. History of atrial fibrillation. 9. Hypertension. 10.Hyperlipidemia. 11.History of myocardial infarction. 12.History of bilateral cataracts. 13.History of peripheral vascular disease. 14.Remote history of nicotine dependence. RECOMMENDATIONS AND DISCUSSION: I recommend to continue current medication, continue symptomatic treatment. Otherwise, I would recommend closely following with Cardiology. Increase ambulation. Possible discharge in 24 to 48 hours. Further recommendations to follow. Continue the rest of the medications. MMODL / IJN: [id number] /
[2018-02-20] MEDS: ATORVASTATIN 40 MG TAB PO SCH (20:40)
[2018-02-21] MEDS: SODIUM CHLORIDE 0.9% 1,000 ML IV SCH (00:54)
[2018-02-21] MEDS: ALPRAZolam 0.5 MG TAB PO PRN (00:58)
[2018-02-21 04:32] VITALS: RESP 18
[2018-02-21 04:48] LABS: Basophils % (A) 0 %; Eosinophils # (A) 0.3 k/uL (0-0.7); Eosinophils % (A) 3 %; HCT 37.4 % (39.0-53.0); HGB 12.4 gm/dL (13.0-17.5); Lymphocytes # (A) 2.1 k/uL (1.0-4.8); Lymphocytes % (A) 25 %; MCH 28.8 pg (25.0-35.0); MCHC 33.2 g/dL (31.0-37.0); MCV 86.9 fL (80.0-100.0); Mean Platelet Volume 7.5; Monocytes # (A) 0.7 k/uL (0-1.0); Monocytes % (A) 8 %; Neutrophils # (A) 5.1 k/uL (1.3-7.7); Neutrophils % (A) 61 %; Platelet Count 156 k/uL (150-450); RDW 14.5 % (11.5-15.5); WBC 8.2 k/uL (3.8-10.6)
[2018-02-21 05:01] LABS: Albumin 3.5 g/dL (3.5-5.0); Total Bilirubin 0.6 mg/dL (0.2-1.3); Total Protein 6.2 g/dL (6.3-8.2)
[2018-02-21] MEDS ORDERED: PANTOPRAZOLE 40 MG TABLET PO SCH (07:30)
[2018-02-21] MEDS: LOSARTAN 50 MG TAB PO SCH (08:33)
[2018-02-21] MEDS: MULTIVITAMINS, THERA 1 EACH TAB PO SCH (08:34)
[2018-02-21] MEDS: BUMETANIDE 1 MG TAB PO SCH (08:34)
[2018-02-21] MEDS: AMIODARONE 200 MG TAB PO SCH (08:34)
[2018-02-21] MEDS: SPIRONOLACTONE 25 MG TAB PO SCH (08:34)
[2018-02-21] MEDS: DOCUSATE 100 MG CAP PO SCH (08:34)
[2018-02-21] MEDS: METOPROLOL TARTRATE 25 MG TAB PO SCH (08:34)
[2018-02-21] MEDS: ASPIRIN 81 MG PO SCH (08:34)
[2018-02-21] MEDS: CLOPIDOGREL 75 MG TAB PO SCH (08:34)
[2018-02-21] MEDS: HEPARIN SODIUM,PORCINE 5,000 UNIT/ML 1 ML VIAL SQ SCH (08:35)
--- NOTE | 2018-02-21 12:40 | P.DS ---
Providers Date of admission: 02/17/18 14:39 Attending physician: Jessy Dean Consults: 02/17/18 14:47 Consult Physician Urgent Consulting Provider: Alexa Mcpherson Consult Reason/Comments: cpa Do you want consulting provider notified?: Yes Placement Type Exists?: Yes Primary care physician: Norman Hightower Hospital Course: 62-year-old admitted after cardiac arrest and patient had an AICD and patient does have severe cardiomyopathy with lead to probably ventricular fibrillation or V. tach led to cardiac arrest. Patient is clinically doing well patient and when corrected radiation which showed patent grafts and patient is being discharged today in stable medical condition to home. PHYSICAL EXAMINATION: GENERAL: The patient is alert and oriented x3, not in any acute distress. Well developed, well nourished. HEENT: Pupils are round and equally reacting to light. EOMI. No scleral icterus. No conjunctival pallor. Normocephalic, atraumatic. No pharyngeal erythema. No thyromegaly. CARDIOVASCULAR: S1 and S2 present. No murmurs, rubs, or gallops. PULMONARY: Chest is clear to auscultation, no wheezing or crackles. ABDOMEN: Soft, nontender, nondistended, normoactive bowel sounds. No palpable organomegaly. MUSCULOSKELETAL: No joint swelling or deformity. EXTREMITIES: No cyanosis, clubbing, or pedal edema. NEUROLOGICAL: Gross neurological examination did not reveal any focal deficits. SKIN: No rashes. -Cardiac arrest possible we 5 patient is positive AICD placement -Ischemic any myopathy ejection fraction of 40% Rondec systolic dysfunction without any acute exacerbation -Coronary artery disease with CABG in the past -Hypertension -Hyperlipidemia -Peripheral vascular disease Patient Condition at Discharge: Critical Plan - Discharge Summary Discharge Rx Participant: Yes New Discharge Prescriptions: New Amiodarone [Cordarone] 200 mg PO BID #60 tab Losartan [Cozaar] 50 mg PO DAILY #30 tab Spironolactone [Aldactone] 25 mg PO DAILY #30 tab Continue Clopidogrel [Plavix] 75 mg PO DAILY #30 tab Metoprolol Tartrate [Lopressor] 25 mg PO BID Atorvastatin [Lipitor] 20 mg PO HS Bumetanide [BUMEX] 2 mg PO DAILY Potassium Chloride [K-Tab ER] 40 meq PO DAILY Aspirin 81 mg PO DAILY Discontinued Tadalafil [Cialis] 5 mg PO DAILY No Action traMADol HCl [Ultram] 50 mg PO QID PRN #15 tab PRN Reason: pain Multivitamin [Men's Multi-Vitamin] 1 tab PO DAILY traZODone HCL 50 mg PO HS Discharge Medication List Clopidogrel [Plavix] 75 mg PO DAILY #30 tab 11/28/15 [Rx] traMADol HCl [Ultram] 50 mg PO QID PRN #15 tab 11/28/15 [Rx] Atorvastatin [Lipitor] 20 mg PO HS 12/01/15 [History] Metoprolol Tartrate [Lopressor] 25 mg PO BID 12/01/15 [History] Bumetanide [BUMEX] 2 mg PO DAILY 02/01/16 [History] Multivitamin [Men's Multi-Vitamin] 1 tab PO DAILY 02/01/16 [History] Potassium Chloride [K-Tab ER] 40 meq PO DAILY 02/01/16 [History] Aspirin 81 mg PO DAILY 02/17/18 [History] traZODone HCL 50 mg PO HS 02/17/18 [History] Amiodarone [Cordarone] 200 mg PO BID #60 tab 02/21/18 [Rx] Losartan [Cozaar] 50 mg PO DAILY #30 tab 02/21/18 [Rx] Spironolactone [Aldactone] 25 mg PO DAILY #30 tab 02/21/18 [Rx] Follow up Appointment(s)/Referral(s): Norman Hightower MD [Primary Care Provider] - 1-2 days Abdulaziz Bush MD [STAFF PHYSICIAN] - 1 Week [facility], [NON-STAFF] - Patient Instructions/Handouts: Implantable Cardioverter Defibrillator (DC) Activity/Diet/Wound Care/Special Instructions: PATIENT EDUCATION MATERIAL Instructions following a heart rhythm device implant. 1. Keep dressing DRY for 5 DAYS. You may cover the area with Saran or Cling Wrap, prior to a shower. 2. The dressing will be removed in the Device Clinic at [facility]. Absorbable sutures were used to close the wound. 3. Avoid raising the left arm above the shoulder level. 4 week restriction 4. Avoid arm movements, like backscratching, rubbing the head, or pulling on a cord. 4 weeks restriction 5. Gentle range of motion movements of the shoulder, closest to the incision should be performed to avoid a frozen shoulder. (Pendulum exercises of the shoulder) 6. The opposite arm may be used freely. 7. Avoid driving for 7 days. 8. Avoid activities such as golfing, swimming, weed whacking, lifting more than 10 pounds weight, bowling, gymnastics and weight training/lifting. (6 weeks restriction) 9. Activities such as wood chopping with an axe, pull-ups in the gymnasium, power lifting, arc-welding, being close to home induction cooktops will always be a problem. 10. Arm sling is a mere reminder not to raise the arm above the head. However you do not need to keep the arm completely immobilized. Your free to move the arm and use it and for normal activities. In case of any problems, please call [facility], [place], @ [phone], Attention: Device Clinic Device clinic follow-up in 5 days Follow-up with primary news writer in 2-4 weeks/as scheduled, Dr. Bush Discharge Disposition: HOME SELF-CARE
[2018-02-21 13:37] VITALS: BP 125/82; PULSE 55; TEMP 98.5
--- NOTE | 2018-02-21 13:57 | P.PN ---
Subjective Progress Note Date: 02/21/18 This is a 62-year-old -[place] gentleman with known history of coronary artery disease status post bypass surgery, mitral valve replacement who presented with cardiac arrest and ventricular fibrillation requiring cardioversion. He underwent a cardiac catheterization which revealed no evidence of significant progression of disease. Subsequent to that he underwent AICD implantation. AICD was interrogated and is functioning appropriately. Patient was seen and examined this morning, he's been up ambulating without any difficulty. Hemodynamically he is stable. Objective - Vital Signs Vital signs: Vital Signs Temp 98.5 F 02/21/18 12:00 Pulse 55 L 02/21/18 12:00 Resp 18 02/21/18 12:00 BP 125/82 02/21/18 12:00 Pulse Ox 98 02/21/18 12:00 Intake & Output 02/20/18 02/21/18 02/21/18 18:59 06:59 18:59 Intake Total 1130 710 Output Total 950 150 Balance 180 560 Weight 97.1 kg Intake: IV 450 350 Sodium Chloride 0.9% 1, 450 350 000 ml @ 50 mls/hr IV . Q20H SUDARSHAN Rx#:[id number] Intake, IV Titration 200 Amount Magnesium Sulfate-D5w Pmx 200 1 gm In Dextrose/Water 1 100ml.bag @ 100 mls/hr IVPB Q1H SUDARSHAN Rx#: [id number] Oral 480 360 Output: Urine 950 150 Other: Voiding Method Toilet Toilet Toilet Urinal Urinal Urinal # Voids 1 # Bowel Movements 1 - Exam PHYSICAL EXAMINATION: HEENT: Head is atraumatic, normocephalic. Pupils equal, round. Neck is supple. There is no elevated jugular venous pressure. HEART EXAMINATION: Heart S1, S2 normal. No murmur or gallop heard. CHEST EXAMINATION: Lungs are clear to auscultation and precussion. No chest wall tenderness is noted on palpation or with deep breathing. Device insertion site dressing is dry and intact ABDOMEN: Soft, nontender. Bowel sounds are heard. No organomegaly noted. EXTREMITIES: 2+ peripheral pulses with no evidence of peripheral edema and no calf tenderness noted. NEUROLOGIC patient is awake, alert and oriented -3. . - Labs CBC & Chem 7: 02/21/18 04:19 02/21/18 04:19 Labs: Abnormal Lab Results - Last 24 Hours (Table) 02/21/18 02/21/18 Range/Units 04:19 04:19 Hgb 12.4 L (13.0-17.5) gm/dL Hct 37.4 L (39.0-53.0) % Total Protein 6.2 L (6.3-8.2) g/dL Microbiology - Last 24 Hours (Table) 02/20/18 11:10 Urine Culture - Preliminary Urine,Voided Assessment and Plan Plan: Assessment and plan #1 cardiac arrest with ventricular fibrillation status post implant of AICD #2 ischemic cardiomyopathy #3 known history of coronary artery disease with prior bypass surgery #4 hyperlipidemia Plan Patient may be able to be discharged home today. Follow-up appointment will be made in the office with Dr. Titi Bush and with the device clinic post discharge. DNP note has been reviewed, I agree with a documented findings and plan of care. Patient was seen and examined.
== END 2018-02-21 14:02 | disposition home health service (06) | DRG 225 ==
LOC: EC 13:29 → 6ICU 14:39
PROVIDERS: ADMIT Hospitalist; ATTEND Hospitalist
PROC: 4A023N7 Measurement of Cardiac Sampling and Pressure, Left Heart, Percutaneous Approach (ICD-10-PCS; 2018-02-17)
PROC: B215YZZ Fluoroscopy of Left Heart using Other Contrast (ICD-10-PCS; 2018-02-17)
PROC: B213YZZ Fluoroscopy of Multiple Coronary Artery Bypass Grafts using Other Contrast (ICD-10-PCS; 2018-02-17)
PROC: B211YZZ Fluoroscopy of Multiple Coronary Arteries using Other Contrast (ICD-10-PCS; 2018-02-17)
PROC: 02HK3KZ Insertion of Defibrillator Lead into Right Ventricle, Percutaneous Approach (ICD-10-PCS; 2018-02-19)
PROC: 02H63KZ Insertion of Defibrillator Lead into Right Atrium, Percutaneous Approach (ICD-10-PCS; 2018-02-19)
PROC: 0JH608Z Insertion of Defibrillator Generator into Chest Subcutaneous Tissue and Fascia, Open Approach (ICD-10-PCS; principal; 2018-02-19 08:30)
DX: I49.01 Ventricular fibrillation (principal); E11.51 Type 2 diabetes mellitus with diabetic peripheral angiopathy without gangrene; I50.22 Chronic systolic (congestive) heart failure; I13.0 Hypertensive heart and chronic kidney disease with heart failure and stage 1 through stage 4 chronic kidney disease, or unspecified chronic kidney disease; N18.3 Chronic kidney disease, stage 3 (moderate); E78.5 Hyperlipidemia, unspecified; F40.240 Claustrophobia; I25.10 Atherosclerotic heart disease of native coronary artery without angina pectoris; I46.2 Cardiac arrest due to underlying cardiac condition; I47.2 Ventricular tachycardia; I48.0 Paroxysmal atrial fibrillation; I25.5 Ischemic cardiomyopathy; H26.9 Unspecified cataract; I49.5 Sick sinus syndrome; R73.03 Prediabetes; I08.1 Rheumatic disorders of both mitral and tricuspid valves; M54.9 Dorsalgia, unspecified; I25.2 Old myocardial infarction; Z79.02 Long term (current) use of antithrombotics/antiplatelets; Z79.82 Long term (current) use of aspirin; Z79.899 Other long term (current) drug therapy; Z95.1 Presence of aortocoronary bypass graft; Z95.2 Presence of prosthetic heart valve; Z95.5 Presence of coronary angioplasty implant and graft; Z86.79 Personal history of other diseases of the circulatory system; Z87.891 Personal history of nicotine dependence; Z80.0 Family history of malignant neoplasm of digestive organs; Z82.3 Family history of stroke; Z83.49 Family history of other endocrine, nutritional and metabolic diseases
CPT/HCPCS: 33249; 36415; 71045; 71046; 80053; 80061; 81003; 82550; 82553; 83735; 83880; 84100; 84484; 85025; 85379; 85610; 85730; 87086; 93005; 93306; 93459

== ENCOUNTER → 2018-03-10 | Outpatient (CLI) | payer MEDICARE ==
[2018-03-10 13:02] LABS: HCT 39.4 % (39.0-53.0); HGB 13.1 gm/dL (13.0-17.5); MCH 28.8 pg (25.0-35.0); MCHC 33.2 g/dL (31.0-37.0); MCV 86.7 fL (80.0-100.0); Mean Platelet Volume 6.7; Platelet Count 261 k/uL (150-450); RBC 4.54 m/uL (4.30-5.90); RDW 13.9 % (11.5-15.5); WBC 6.9 k/uL (3.8-10.6)
[2018-03-10 13:13] LABS: Calcium 9.9 mg/dL (8.4-10.2); Magnesium 1.9 mg/dL (1.6-2.3); Potassium 4.3 mmol/L (3.5-5.1)
== END | disposition home or self-care (01) ==
LOC: LABWHC1 12:23
PROVIDERS: ATTEND Internal Medicine Interventional Cardiology
DX: I25.10 Atherosclerotic heart disease of native coronary artery without angina pectoris (principal); I47.2 Ventricular tachycardia
CPT/HCPCS: 36415; 80048; 83735; 85027

== ENCOUNTER → 2018-04-30 | Outpatient (CLI) | payer MEDICARE ==
[2018-04-30 16:37] LABS: Calcium 9.3 mg/dL (8.4-10.2); Potassium 4.3 mmol/L (3.5-5.1)
== END | disposition home or self-care (01) ==
LOC: LABWHC1 15:24
PROVIDERS: ATTEND Internal Medicine Interventional Cardiology
DX: I25.10 Atherosclerotic heart disease of native coronary artery without angina pectoris (principal)
CPT/HCPCS: 36415; 80048

== ENCOUNTER → 2018-06-12 | Outpatient (CLI) | payer MEDICARE ==
[2018-06-12 14:09] LABS: HCT 42.4 % (39.0-53.0); HGB 14.1 gm/dL (13.0-17.5); MCH 29.2 pg (25.0-35.0); MCHC 33.4 g/dL (31.0-37.0); MCV 87.6 fL (80.0-100.0); Mean Platelet Volume 7.4; Platelet Count 204 k/uL (150-450); RBC 4.84 m/uL (4.30-5.90); RDW 14.8 % (11.5-15.5); WBC 5.4 k/uL (3.8-10.6)
[2018-06-12 14:20] LABS: Potassium 4.1 mmol/L (3.5-5.1)
== END | disposition home or self-care (01) ==
LOC: LABPAT 13:42
PROVIDERS: ATTEND Internal Medicine Clinical Cardiac Electrophysiology
DX: Z01.812 Encounter for preprocedural laboratory examination (principal); I25.5 Ischemic cardiomyopathy; I47.2 Ventricular tachycardia; I48.0 Paroxysmal atrial fibrillation; Z95.1 Presence of aortocoronary bypass graft
CPT/HCPCS: 36415; 80051; 82565; 82947; 84520; 85027

== ENCOUNTER 2018-06-18 06:02 | Day surgery (SDC) | payer MEDICARE ==
[2018-06-11 15:19] VITALS: BMI 31.0
[~2018-06-18 06:02] MED LIST: DEXAMETHASONE SOD PHOSPHATE 10 MG/ML 1 ML VIAL IV ONE; HYDROmorphone 0.5 MG/0.5 ML SYRINGE IVP PRN; ONDANSETRON 4 MG/2 ML VIAL IVP ONE
[2018-06-18] MEDS ORDERED: SODIUM CHLORIDE 0.9% 1,000 ML IV ONE (06:42)
[2018-06-18] MEDS ORDERED: HEPARIN SODIUM 1,000 UN/ML (10ML VL) ONE (07:19)
[2018-06-18] MEDS ORDERED: PROTAMINE SULFATE 10 MG/ML 5 ML VIAL IV ONE (07:41)
[2018-06-18] MEDS ORDERED: HEPARIN SODIUM,PORCINE 10,000 UNIT/ML 1 ML VIAL ONE (07:41)
[2018-06-18] MEDS ORDERED: PROPOFOL 10 MG/ML 20 ML VIAL IV ONE (07:41)
[2018-06-18] MEDS ORDERED: ISOPROTERENOL 250 MCG/1.25 ML SYR IV ONE (07:41)
[2018-06-18] MEDS ORDERED: diphenhydrAMINE 50 MG/ML 1 ML VIAL ONE (07:41)
[2018-06-18] MEDS ORDERED: HYDROmorphone (PF) 1 MG/ML ONE (07:41)
[2018-06-18] MEDS ORDERED: FUROSEMIDE 10 MG/ML 2 ML VIAL ONE (07:41)
[2018-06-18] MEDS ORDERED: MIDAZOLAM 2 MG/2 ML VIAL ONE (07:41)
[2018-06-18] MEDS ORDERED: fentaNYL (PF) 50 MCG/ML 2 ML AMP ONE (07:41)
[2018-06-18] MEDS ORDERED: ceFAZolin IN SWFI 2 GM/20 ML SYRINGE IVP ONE (08:00)
[2018-06-18] MEDS ORDERED: FUROSEMIDE 10 MG/ML 4 ML VIAL IV ONE (08:04)
[2018-06-18] MEDS ORDERED: FUROSEMIDE 10 MG/ML 4 ML VIAL ONE (08:05)
[2018-06-18] MEDS ORDERED: HEPARIN SOD,PORK IN 0.45% NACL 25,000 UNIT in 0.45% NACL 1 500ML.BAG IV ONE (08:10)
[2018-06-18] MEDS ORDERED: LIDOCAINE 1% INJ 10MG/ML (20 ML MDV) ONE ×2 (08:24)
[2018-06-18] MEDS ORDERED: LIDOCAINE 1% INJ 10MG/ML (20 ML MDV) SQ ONE (08:28)
[2018-06-18 08:52] LABS: Basophils % (A) 0 %; Eosinophils # (A) 0.3 k/uL (0-0.7); Eosinophils % (A) 6 %; HCT 40.8 % (39.0-53.0); HGB 12.8 gm/dL (13.0-17.5); Lymphocytes % (A) 34 %; MCH 28.3 pg (25.0-35.0); MCHC 31.5 g/dL (31.0-37.0); MCV 89.8 fL (80.0-100.0); Mean Platelet Volume 7.1; Monocytes # (A) 0.3 k/uL (0-1.0); Monocytes % (A) 5 %; Neutrophils # (A) 3.1 k/uL (1.3-7.7); Neutrophils % (A) 52 %; Platelet Count 205 k/uL (150-450); RBC 4.54 m/uL (4.30-5.90); RDW 15.1 % (11.5-15.5); WBC 5.9 k/uL (3.8-10.6)
[2018-06-18] MEDS ORDERED: HEPARIN SODIUM (1,000 UNIT/ML) 1,000 UNIT in SODIUM CHLORIDE 0.9% 1,000 ML IRRIGATION ONE (08:52)
[2018-06-18 09:04] LABS: Calcium 9.5 mg/dL (8.4-10.2); Potassium 3.2 mmol/L (3.5-5.1)
[2018-06-18] MEDS ORDERED: ACETAMINOPHEN TAB 325 MG TAB PO PRN (13:37)
[2018-06-18] MEDS ORDERED: ACETAMINOPHEN IV (For NPO) 1,000 MG in EMPTY BAG 1 BAG IVPB ONE (13:37)
[2018-06-18] MEDS ORDERED: XANAX PO PRN (13:43)
[2018-06-18] MEDS ORDERED: traMADol 50 MG TAB PO PRN (13:43)
[2018-06-18 13:52] LABS: Calcium 8.5 mg/dL (8.4-10.2); Potassium 3.3 mmol/L (3.5-5.1)
--- NOTE | 2018-06-18 14:16 | P.PCN ---
Preoperative Diagnosis: Diagnosis Ischemic cardio myopathy History of ventricular fibrillation History of recurrent ventricular tachycardia on amiodarone 200 mg by mouth daily Ejection fraction 45% Status post mitral valve replacement Class III congestive heart failure acute on chronic with prominent JVD Treated with IV Lasix prior to the procedure Details Patient was brought to the EP lab in a fasting state. Written informed consent was obtained prior to the procedure. The right left groin were prepped and draped as a protocol. The dual-chamber ICD was interrogated and reprogrammed before the procedure VT and VF therapies were turned off. DDD mode with a long AV delay was programmed. Rate responsiveness was turned off. At the end of the procedure VT and VF therapies were turned back on DDDR mode with adjustment of the AV delay intervals Impedance is stable Device interrogated Atrial sensing 1.7 mV and impedance 490 ohms RV sensing 4.9 mV, pacing impedance 450 ohms High-voltage impedance 74 To venous sheaths in the left femoral vein, one venous sheaths in the right femoral vein, right femoral arterial sheath for him regarding monitoring and sampling Diagnostic catheters in the RA RV His bundle Larry sinus Later intracardiac echo catheter, Pentaray catheter in the LV, mapping and ablation catheter in the LV retrogradely Sinus cycle length 10/28/2002 milliseconds, AL 273 ms paced in the atrium, QRS 123, QT 511 AH 185 ms, HV 48 ms Ventricular system ablation from the RV apex. Ventricular ERP 600\300 ms In preparation for S2 mapping LV delay was documented within the inferior lateral scar with ventricular extra stimulation from the right ventricular apex pacing 600/390 ms - 95 ms LV delay 600/340 ms - 112 ms 600/320 ms- 127 ms Intermittently@600/300 ms - 155 ms At least 2 different morphologies of VT was induced with catheter mapping in the left ventricle At the end of the procedure ventricular extra stimulation at [address] after double extra stimuli did not induce any ventricular tachycardia On Isuprel, PMVT was induced at 400/210 ms/210 ms that required synchronized cardioversion. This seemed to originate/ in the inferior wall. MDI was prolonged in V1 3-D mapping with intracardiac echo to define the LV endocardial border and the inferior lateral scar by echo This was tagged 3-D mapping during sinus rhythm Voltage mapped created. Good voltage in the posterior lateral LV with minimal scar on bipolar maps Unipolar maps did not reveal any greater extent of scar Activation mapping during sinus rhythm did not reveal any functional slowing of conduction Split potentials in the area identified in sinus rhythm and tagged 2 areas of split potentials were noted 1 more laterally and the other more inferiorly along the scar Activation mapping suggested that in the upper zone of split potentials there was a conduction With conduction 3-D mapping during ventricular extra stimulation, S2 mapping at 600/320 ms Voltage mapped created. Several areas of scar noted at a custom voltage range of 1.0 mV-2.0 mV Inferior lateral LV location along the inferior border of the ultrasound based scar Activation mapping performed and correlated with the isthmii 2 activation fronds of slow conduction through the area clearly identified the functional isthmii, 2 prominent isthmii, that were not evident during sinus mapping Limited activation mapping of the fast VT, monomorphic, induced with catheter manipulation and the exit appear to be just below the inferior border of the inferolateral scar, close one of the isthmii that was defined with S2 mapping Ablation/VT ablation Limited VT ablation was performed within the to isthmii defined by the above technique and thereafter with catheter manipulation, sustained VT could not be induced Thereafter ventricular extra stimulation was performed after double extrastimuli , [address] trains and from the RV septum as well as RV apex but clinical sustained VT could not be induced Only fast PMVT induced on Isuprel with aggressive stimulation Multiple doses of IV Lasix administered through the procedure to keep him in negative fluid balance IV heparin used an ACT maintained above 300. This was reversed at the end of the procedure Result Successful monomorphic VT ablation using S2 mapping technique since during sinus rhythm there was minimal scar noted along the endocardial border of the left ventricle both with bipolar and unipolar maps. On ultrasound this was definitely a deep myocardial /epicardial scar but this was successfully ablated endocardially after defining the functional isthmii with ventricular extra stimulation mapping Procedures performed Dual-chamber ICD interrogation with reprogramming before the procedure Dual-chamber ICD interrogation and reprogramming after the procedure Comprehensive diagnostic EP study with attempted arrhythmia induction CS pacing and recording LV pacing and recording Programmed to ablation following Isuprel Intracardiac echo Ablation of ventricular tachycardia, 52903 3-D mapping
[2018-06-18] MEDS: POTASSIUM CHLORIDE ER 20 MEQ TAB.ER PO STA ×2 (14:43→18:55)
[2018-06-18] MEDS: SODIUM CHLORIDE 0.9% 1,000 ML IV SCH (16:52)
[2018-06-18] MEDS: LACTATED RINGERS 1,000 ML IV SCH (16:52)
[2018-06-18] MEDS: HYDROcodone/APAP 5-325MG 1 EACH TAB PO PRN ×2 (17:06→22:34)
[2018-06-18 17:44] VITALS: PULSE 50
[2018-06-18] MEDS ORDERED: ALPRAZolam 0.25 MG TAB PO PRN (18:51)
[2018-06-18] MEDS ORDERED: TEMAZEPAM 15 MG CAP PO PRN (18:53)
[2018-06-18] MEDS ORDERED: ATORVASTATIN 20 MG TAB PO SCH (21:00)
[2018-06-18] MEDS: METOPROLOL TARTRATE 25 MG TAB PO SCH (21:20)
[2018-06-18] MEDS: APIXABAN 5 MG TAB PO SCH (21:20)
[2018-06-18] MEDS ORDERED: DOCUSATE 100 MG CAP PO PRN (22:20)
[2018-06-19] MEDS: SODIUM CHLORIDE 0.9% 1,000 ML IV SCH (07:51)
[2018-06-19] MEDS: LACTATED RINGERS 1,000 ML IV SCH (07:51)
[2018-06-19 08:04] VITALS: RESP 16
--- NOTE | 2018-06-19 08:22 | P.DS ---
Providers Attending physician: Raffi Araiza Primary care physician: Norman Hight[facility] Course: The patient is doing well. He denies any chest discomfort no dizziness lightheadedness palpitations. He's been ablating in the hallways since last evening. Groins have healed well. He underwent ischemic VT ablation yesterday and did very well. Afebrile 97.5F pulse rate in the 50s respirations normal blood pressure 128/80 mmHg Heart sounds are normal no S3 gallop JVD at 45 Breath sounds are clear Groins of healed well no hematoma No lower extremity edema Impression Coronary artery disease status post bypass surgery status post stenting old inferior wall NC and a history of Kartagener's shock at that time Inferior lateral scar with both ventricular fibrillation and VT. Successful VT ablation yesterday with substrate mapping with S2 mapping, Pulmonary hypertension Chronic kidney disease Suggest Add ELIQUIS 5 mg twice daily for at least 1 month, post VT ablation. However this patient has a history of atrial fibrillation in the past Continue aspirin and Plavix Metoprolol succinate 25 mg twice daily Losartan 12.5 mg by mouth daily at noontime Reduce amiodarone to 100 mg by mouth daily Follow-up with Dr. Bush in about a week Patient Condition at Discharge: Stable Plan - Discharge Summary Discharge Rx Participant: Yes New Discharge Prescriptions: New Amiodarone [Cordarone] 100 mg PO DAILY #90 tab Metoprolol Succinate [Toprol XL] 25 mg PO BID #90 tab Discontinued Metoprolol Tartrate [Lopressor] 25 mg PO BID Amiodarone [Cordarone] 200 mg PO 1200 No Action traMADol HCl [Ultram] 50 mg PO QID PRN #15 tab PRN Reason: pain Atorvastatin [Lipitor] 20 mg PO HS Bumetanide [BUMEX] 2 mg PO 1200 Aspirin 81 mg PO 1200 Xanax(Dose Unknown) 1 tab PO HS PRN PRN Reason: Insomnia Spironolactone [Aldactone] 25 mg PO 1200 Clopidogrel [Plavix] 75 mg PO 1200 Discharge Medication List traMADol HCl [Ultram] 50 mg PO QID PRN #15 tab 11/28/15 [Rx] Atorvastatin [Lipitor] 20 mg PO HS 12/01/15 [History] Bumetanide [BUMEX] 2 mg PO 1200 02/01/16 [History] Aspirin 81 mg PO 1200 02/17/18 [History] Clopidogrel [Plavix] 75 mg PO 1200 06/11/18 [History] Spironolactone [Aldactone] 25 mg PO 1200 06/11/18 [History] Xanax(Dose Unknown) 1 tab PO HS PRN 06/11/18 [History] Amiodarone [Cordarone] 100 mg PO DAILY #90 tab 06/18/18 [Rx] Metoprolol Succinate [Toprol XL] 25 mg PO BID #90 tab 06/18/18 [Rx] Follow up Appointment(s)/Referral(s): Abdulaziz Bush MD [STAFF PHYSICIAN] - 1 Week Activity/Diet/Wound Care/Special Instructions: Post EP study - Ablation instructions 1. Keep access sites dry for 2 days. 2. No heavy lifting or straining for 2 days. 3. Avoid bending the hips repeatedly for 2 days. 4. You may go up and down stairs slowly Call if the following is noted 1. Bleeding, increasing swelling or pain at the access sites. 2. Increasing chest discomfort, especially upon taking a deep breath. 3. Increasing shortness of breath, at rest or with exertion. 4. Undue cough / phlegm 5. Difficulty or pain while swallowing. 6. Pain or change in color in the extremities. 7. Fever, chills, rigors. 8. Increasing headache or neurologic symptoms. 9. Dizziness, fainting, palpitations Discharge Disposition: HOME SELF-CARE
[2018-06-19 08:26] LABS: Calcium 9.1 mg/dL (8.4-10.2); Potassium 3.7 mmol/L (3.5-5.1)
[2018-06-19] MEDS ORDERED: LOSARTAN 25 MG TAB PO SCH (09:00)
[2018-06-19] MEDS: APIXABAN 5 MG TAB PO SCH (09:16)
[2018-06-19] MEDS: METOPROLOL TARTRATE 25 MG TAB PO SCH (09:16)
[2018-06-19] MEDS ORDERED: CLOPIDOGREL 75 MG TAB PO SCH (12:00)
[2018-06-19] MEDS ORDERED: BUMETANIDE 1 MG TAB PO SCH (12:00)
[2018-06-19] MEDS ORDERED: ASPIRIN 81 MG PO SCH (12:00)
[2018-06-19] MEDS ORDERED: SPIRONOLACTONE 25 MG TAB PO SCH (12:00)
[2018-06-19 12:03] VITALS: BP 118/75; TEMP 98.4
== END 2018-06-19 13:41 | disposition home or self-care (01) ==
LOC: CATHEP 06:02 → 3OBS 14:31 → CATHEP 06-19 13:41
PROVIDERS: ATTEND Internal Medicine Clinical Cardiac Electrophysiology
DX: I47.2 Ventricular tachycardia (principal); Z45.02 Encounter for adjustment and management of automatic implantable cardiac defibrillator; E78.5 Hyperlipidemia, unspecified; Z87.891 Personal history of nicotine dependence; Z82.49 Family history of ischemic heart disease and other diseases of the circulatory system; I25.5 Ischemic cardiomyopathy; I48.0 Paroxysmal atrial fibrillation; Z95.1 Presence of aortocoronary bypass graft; Z95.4 Presence of other heart-valve replacement; Z95.5 Presence of coronary angioplasty implant and graft; I25.2 Old myocardial infarction; Q89.3 Situs inversus; N18.9 Chronic kidney disease, unspecified; I27.20 Pulmonary hypertension, unspecified; I25.10 Atherosclerotic heart disease of native coronary artery without angina pectoris; G47.00 Insomnia, unspecified; Z79.02 Long term (current) use of antithrombotics/antiplatelets; Z79.82 Long term (current) use of aspirin; Z79.899 Other long term (current) drug therapy
CPT/HCPCS: 93623; 93662; 93654; 80048 ×2; 85025; C1894; C1769 ×2; C1730 ×2; C1731; C1759; C1732; J2250; J2720; J1200; J1644 ×3; J1940 ×2; J2001; J3010; J1170; J0131; J2704; J0690

== ENCOUNTER → 2020-10-16 | Outpatient (CLI) | payer MEDICARE ==
[2020-10-17 00:40] LABS: African American GFR (CKD) 48.7 (60.0-200.0); Albumin 4.7 g/dL (3.80-4.90); Albumin/Globulin Ratio 1.47 (1.60-3.17); Anion Gap 11.3 mmol/L (4.00-12.00); BUN/Creat Ratio 15.88 Ratio (12.00-20.00); Calcium 9.7 mg/dL (8.7-10.3); Carbon Dioxide 21.7 mmol/L (21.6-31.8); Globulin 3.2 g/dL (1.6-3.3); Potassium 3.7 mmol/L (3.5-5.5); Total Bilirubin 0.8 mg/dL (0.2-1.2); Total Protein 7.9 g/dL (6.2-8.2)
== END | disposition home or self-care (01) ==
LOC: LABWHC1 16:27
PROVIDERS: ATTEND Internal Medicine Clinical Cardiac Electrophysiology
DX: I47.2 Ventricular tachycardia (principal)
CPT/HCPCS: 36415; 80053; 84443

== ENCOUNTER → 2021-05-11 | Outpatient (CLI) | payer MEDICARE | END | disposition home or self-care (01) | LOC: LABMAIN 16:42 | PROVIDERS: ATTEND Internal Medicine Cardiovascular Disease | DX: Z53.9 Procedure and treatment not carried out, unspecified reason (principal) ==

== ENCOUNTER → 2021-05-12 | Outpatient (CLI) | payer MEDICARE ==
[2021-05-12 12:27] LABS: African American GFR (CKD) 56.2 (60.0-200.0); Anion Gap 6.9 mmol/L (4.00-12.00); Carbon Dioxide 26.1 mmol/L (21.6-31.8); Non-African American GFR(CKD) 48.5 (60.0-200.0); Potassium 3.6 mmol/L (3.5-5.5)
== END | disposition home or self-care (01) ==
LOC: LABWHC1 08:14
PROVIDERS: ATTEND Internal Medicine Cardiovascular Disease
DX: I47.2 Ventricular tachycardia (principal)
CPT/HCPCS: 36415; 80051; 82565; 83735; 84520

== ENCOUNTER → 2021-06-08 | Outpatient (CLI) | payer MEDICARE ==
[2021-06-09 02:55] LABS: T4, Free (Free Thyroxine) 1.3 ng/dL (0.80-1.80)
== END | disposition home or self-care (01) ==
LOC: LABWHC1 10:47
PROVIDERS: ATTEND Internal Medicine Clinical Cardiac Electrophysiology
DX: I47.2 Ventricular tachycardia (principal); Z91.14 Patient's other noncompliance with medication regimen
CPT/HCPCS: 36415; 84439; 84443; 84481

== ENCOUNTER → 2021-07-12 | Outpatient (CLI) | payer MEDICARE ==
[2021-07-12 15:12] LABS: HCT 38.9 % (39.0-53.0); HGB 13.1 gm/dL (13.0-17.5); MCHC 33.6 g/dL (31.0-37.0); MCV 86.4 fL (80.0-100.0); Platelet Count 184 k/uL (150-450); RDW 15.1 % (11.5-15.5); WBC 4.6 k/uL (3.8-10.6)
[2021-07-12 15:18] LABS: Potassium 3.5 mmol/L (3.5-5.1)
== END | disposition home or self-care (01) ==
LOC: LABPAT 14:05
PROVIDERS: ATTEND Internal Medicine Clinical Cardiac Electrophysiology
DX: Z01.812 Encounter for preprocedural laboratory examination (principal)
CPT/HCPCS: 36415; 80051; 82565; 84520; 85027

== ENCOUNTER 2021-07-17 11:06 | Day surgery (SDC) | payer MEDICARE ==
[2021-07-16 14:36] VITALS: BMI 28.3
[2021-07-17] MEDS: SODIUM CHLORIDE 0.9% 1,000 ML IV SCH (11:48)
[2021-07-17] MEDS ORDERED: fentaNYL (PF) 50 MCG/ML 2 ML AMP ONE (13:04)
[2021-07-17] MEDS ORDERED: PROTAMINE SULFATE 10 MG/ML 5 ML VIAL IV ONE (13:04)
[2021-07-17] MEDS ORDERED: PROPOFOL 10 MG/ML 20 ML VIAL IV ONE (13:04)
[2021-07-17] MEDS ORDERED: MIDAZOLAM 2 MG/2 ML VIAL ONE (13:04)
[2021-07-17] MEDS ORDERED: HEPARIN SODIUM,PORCINE 10,000 UNIT/ML 1 ML VIAL ONE (13:04)
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
[2021-07-17] MEDS ORDERED: LIDOCAINE 1% INJ 10MG/ML (20 ML MDV) ONE ×2 (13:33→13:50)
[2021-07-17] MEDS ORDERED: LIDOCAINE 1% INJ 10MG/ML (20 ML MDV) SQ ONE ×2 (13:41→15:10)
[2021-07-17] MEDS ORDERED: HEPARIN SOD,PORK IN 0.45% NACL 25,000 UNIT in 0.45% NACL 1 250ML.BAG IV ONE (13:57)
[2021-07-17] MEDS ORDERED: HEPARIN SODIUM (1,000 UNIT/ML) 1,000 UNIT in SODIUM CHLORIDE 0.9% 1,000 ML IRRIGATION ONE (16:28)
[2021-07-17] MEDS ORDERED: ACETAMINOPHEN IV (For NPO) 1,000 MG in EMPTY BAG 1 BAG IVPB ONE (18:09)
[2021-07-17] MEDS ORDERED: ACETAMINOPHEN TAB 325 MG TAB PO PRN (18:09)
--- NOTE | 2021-07-17 18:28 | P.EPPROC ---
- EP Procedure Note Electrophysiology Procedure Note: Diagnosis Ventricular tachycardia, failed amiodarone Recurrence after VT ablation was performed in 2018, This is a very dizzy spells Details of the procedure Patient was brought to the EP lab in a fasting state Written informed consent was obtained prior to the procedure the ICD was interro gated. This is a [facility] , [id number] The ICD was interrogated His original VT was brought up for comparisons Pacing threshold and pacing impedance is within normal limits sensing was within normal limits The device was reprogrammed. Tachycardia therapies were turned off. Rate responsiveness was turned off At the end of the procedure rate responsiveness and tachycardia therapies were turned on Venous sheaths were placed in the left femoral veins Arterial sheath was placed in the right femoral artery for hemodynamic monitoring rate later isthmus was upsized to an 8-Czech sheath for ablation An IV catheter was placed. Intracardiac echo catheter was placed 3-D mapping was performed On intracardiac echo, there is no pericardial effusion Scar mapping was performed The left ventricular inferior wall scar was delineated on its septal apical basal and lateral aspects An EP study is performed first from the RV catheter placed in the RV inferior wall and later from the ICD With long short sequence VT was induced 400/550/270/270 ms this VT had a right bundle branch block morphology with a QS pattern in V4 V5 V6, QS pattern in the inferior leads and an rS pattern in lead Apparently cath was placed in the LV retrogradely Scar mapping was performed in sinus rhythm The inferior wall scar was delineated. The lateral margin was defined Isthmus was defined in this region Pace mapping just outside the exit produced a VT morphology with concordance of about 65-70% RF ablation was performed along the inferior lateral border Linear ablation was performed successfully and was completed from the apex along the inferior lateral border Following that EP study as well as again performed and with long short sequence of 400/500/280/210 ms, VT was 1 seen induced which he generator and ventricular fibrillation The patient had to be externally defibrillated. In this process the patient moved significantly rendering the previous mapped non-usable the The second VT had a right bundle branch block morphology with a QS pattern in the lead 1 and upright in the inferior leads and upright all along the precordium consistent with an anterolateral However the left ventricular map could not be used any further Due to the length of the procedure this was stopped Catheters removed Intracardiac echo confirmed absence of any pericardial effusion The arterial and venous sheaths were closed Hemostasis was assured Impression Successful ablation of the inferior apical VT Patient has a second ventricular tachycardia originating from the anterolateral base of the LV This will need to be ablated in the future if Plan Continue all current medications including apixaban and low-dose amiodarone Patient tolerates procedure well without any acute complications
[2021-07-17] MEDS ORDERED: ONDANSETRON 4 MG/2 ML VIAL IVP PRN (20:20)
[2021-07-17] MEDS: APIXABAN 5 MG TAB PO SCH (20:37)
[2021-07-17] MEDS ORDERED: ATORVASTATIN 20 MG TAB PO SCH (21:00)
[2021-07-18] MEDS: SODIUM CHLORIDE 0.9% 1,000 ML IV SCH (02:07)
[2021-07-18 06:51] VITALS: PULSE 50; TEMP 98.4
[2021-07-18 06:53] VITALS: BP 138/84; RESP 18
[2021-07-18] MEDS: APIXABAN 5 MG TAB PO SCH (07:23)
[2021-07-18] MEDS ORDERED: BUMETANIDE 1 MG TAB PO SCH (09:00)
[2021-07-18] MEDS ORDERED: LOSARTAN 25 MG TAB PO SCH (09:00)
[2021-07-18] MEDS ORDERED: AMIODARONE 100 MG TAB PO SCH (09:00)
[2021-07-18] MEDS ORDERED: METOPROLOL SUCCINATE (ER) 50 MG TAB.ER.24H PO SCH (09:00)
--- NOTE | 2021-07-18 17:36 | DS ---
DISCHARGE SUMMARY Bo Asher is a 65-year-old male patient with both ischemic and nonischemic cardiomyopathy with valvular heart disease and coronary artery disease and old inferior lateral OH. He had episodes of fast ventricular tachycardia requiring antitachycardia pacing despite being on amiodarone. He was brought in for an EP study and ablation. The EP study was performed under light conscious sedation. With some difficulty, we were able to induce ventricular tachycardia, but this did not match the intracardiac electrograms from March. 3D mapping was performed. This VT appeared to be exiting inferior apical area of the scar. An isthmus was noted there. Pace mapping showed a concordance of approximately 65%. The linea RF ablation was performed across the isthmus and this VT was rendered noninducible. However he had a second inducible VT that at that time with antitachycardia pacing we had to shock him out of the rhythm. This resulted in the patient moving and the 3D map generated was in the 70s and as a result shock was delivered resulting patient movement. The map was not usable. The 3D map thereafter was not usable on account of the significant movement at this time. He was monitored overnight. The groins were sealed and his groins have healed very well. There is no hematoma. There is no swelling. Lungs are clear. Breath sounds are normal. No rhonchi, no crackles. He does not complain of any chest pain. He is walking around the room and wants to go home. He looks comfortable. He says he is tired and wants to sleep. He could not sleep in the hospital. Otherwise, hemodynamically stable. His 12-lead EKG shows an atrial paced rhythm. He will continue his cardiac medications. I informed him that it is imperative that he continue his anticoagulation post linear ablation in the LV for stroke prevention. He will see Dr. Bush in about a week. He will recheck his device at that time and he will be brought back for an EP study and ablation. The second VT that was induced appeared to be originating from the basal anterolateral LV. MMODL / IJN: [id number] /
== END 2021-07-18 08:08 | disposition home or self-care (01) ==
LOC: CATHEP 11:06 → 6NMEDSUR 18:01 → CATHEP 07-18 08:08
PROVIDERS: ATTEND Internal Medicine Clinical Cardiac Electrophysiology
DX: I47.2 Ventricular tachycardia (principal); I45.10 Unspecified right bundle-branch block; I25.5 Ischemic cardiomyopathy; Z95.2 Presence of prosthetic heart valve; Z79.899 Other long term (current) drug therapy; Z79.01 Long term (current) use of anticoagulants; E78.5 Hyperlipidemia, unspecified; Z82.49 Family history of ischemic heart disease and other diseases of the circulatory system; F17.210 Nicotine dependence, cigarettes, uncomplicated; I25.10 Atherosclerotic heart disease of native coronary artery without angina pectoris; I27.20 Pulmonary hypertension, unspecified; I07.1 Rheumatic tricuspid insufficiency; Z95.810 Presence of automatic (implantable) cardiac defibrillator; I49.3 Ventricular premature depolarization; I12.9 Hypertensive chronic kidney disease with stage 1 through stage 4 chronic kidney disease, or unspecified chronic kidney disease; N18.9 Chronic kidney disease, unspecified; K21.9 Gastro-esophageal reflux disease without esophagitis; M19.90 Unspecified osteoarthritis, unspecified site; I25.2 Old myocardial infarction; I50.9 Heart failure, unspecified; Z86.74 Personal history of sudden cardiac arrest; Z95.1 Presence of aortocoronary bypass graft; Z95.3 Presence of xenogenic heart valve; Z95.5 Presence of coronary angioplasty implant and graft
CPT/HCPCS: 93654; 93662; C1759; C1760; C1894; C1769 ×2; C1730; C1731; C1732; J2250; J2720; J1644 ×3; J0690; J2405; J2001; J3010; J0131; J2704; 93283

== ENCOUNTER → 2021-10-02 | Outpatient (CLI) | payer MEDICARE ==
[2021-10-02 15:22] LABS: HCT 43.7 % (39.0-53.0); HGB 13.9 gm/dL (13.0-17.5); MCH 29.3 pg (25.0-35.0); MCHC 31.9 g/dL (31.0-37.0); MCV 91.8 fL (80.0-100.0); Mean Platelet Volume 7.5; Platelet Count 241 k/uL (150-450); RBC 4.76 m/uL (4.30-5.90); RDW 14.4 % (11.5-15.5); WBC 7.6 k/uL (3.8-10.6)
[2021-10-02 15:24] LABS: Potassium 3.9 mmol/L (3.5-5.1)
== END | disposition home or self-care (01) ==
LOC: LABPAT 14:37
PROVIDERS: ATTEND Internal Medicine Clinical Cardiac Electrophysiology
DX: Z01.812 Encounter for preprocedural laboratory examination (principal); I47.2 Ventricular tachycardia
CPT/HCPCS: 36415; 80051; 82565; 84520; 85027

== ENCOUNTER → 2021-10-08 | Outpatient (CLI) | payer MEDICARE | END | disposition home or self-care (01) | LOC: LABWHC1 13:52 | PROVIDERS: ATTEND Nurse Practitioner Adult Health | DX: U07.1 COVID-19 (principal) | CPT/HCPCS: U0003; C9803 ==

== ENCOUNTER 2021-10-11 10:01 | Day surgery (SDC) | payer MEDICARE ==
[2021-10-09 16:22] VITALS: BMI 28.0
[~2021-10-11 10:01] MED LIST changes: -DEXAMETHASONE SOD PHOSPHATE 10 MG/ML 1 ML VIAL IV ONE; -HYDROmorphone 0.5 MG/0.5 ML SYRINGE IVP PRN; -ONDANSETRON 4 MG/2 ML VIAL IVP ONE; +SODIUM CHLORIDE 0.9% 1,000 ML IV SCH
[2021-10-11] MEDS ORDERED: DEXAMETHASONE SOD PHOSPHATE 4 MG/ML 1 ML VIAL ONE (12:46)
[2021-10-11] MEDS ORDERED: LIDOCAINE 1% INJ 10MG/ML (20 ML MDV) ONE ×2 (12:46→13:13)
[2021-10-11] MEDS ORDERED: HEPARIN SODIUM,PORCINE 10,000 UNIT/ML 1 ML VIAL ONE (12:46)
[2021-10-11] MEDS ORDERED: fentaNYL (PF) 50 MCG/ML 2 ML AMP ONE (12:46)
[2021-10-11] MEDS ORDERED: ETOMIDATE 2 MG/ML 10 ML VIAL ONE (12:46)
[2021-10-11] MEDS ORDERED: ONDANSETRON 4 MG/2 ML VIAL ONE (12:46)
[2021-10-11] MEDS ORDERED: SUCCINYLCHOLINE CHLORIDE 100 MG/5 ML SYR IV ONE (12:46)
[2021-10-11] MEDS ORDERED: FUROSEMIDE 10 MG/ML 2 ML VIAL ONE (12:46)
[2021-10-11] MEDS ORDERED: PHENYLEPHRINE-0.9% NACL SYG 1,000 MCG/10 ML SYRINGE ONE (12:46)
[2021-10-11] MEDS ORDERED: MIDAZOLAM 2 MG/2 ML VIAL ONE (12:46)
[2021-10-11] MEDS ORDERED: PROPOFOL 10 MG/ML 20 ML VIAL IV ONE (12:46)
[2021-10-11] MEDS ORDERED: LIDOCAINE 1% INJ 10MG/ML (20 ML MDV) SQ ONE (13:32)
[2021-10-11] MEDS ORDERED: HEPARIN SOD,PORK IN 0.45% NACL 25,000 UNIT in 0.45% NACL 1 250ML.BAG IV ONE (13:35)
[2021-10-11] MEDS ORDERED: HEPARIN SODIUM (1,000 UNIT/ML) 1,000 UNIT in SODIUM CHLORIDE 0.9% 1,000 ML IRRIGATION ONE ×2 (14:00→16:42)
[2021-10-11] MEDS ORDERED: ACETAMINOPHEN TAB 325 MG TAB PO PRN (17:46)
[2021-10-11] MEDS ORDERED: ACETAMINOPHEN IV (For NPO) 1,000 MG in EMPTY BAG 1 BAG IVPB ONE (17:46)
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
[2021-10-11 18:20] VITALS: PULSE 60
--- NOTE | 2021-10-11 18:22 | P.EPPROC ---
- EP Procedure Note Electrophysiology Procedure Note: Procedure Ischemic VT ablation, scar based Results Induction of VT, poor tolerance, ATP failed, degenerated to ventricular fibrillation requiring external shock Induction of VT again, successful electrical cardioversion Intolerance to even brief episodes of ventricular tachycardia hemodynamically and slow recovery thereafter 3-D electro-anatomic mapping, voltage mapping Scar based ablation only, without any activation mapping, as a result of above responses to sustained VT Inferior lateral and apical scar delineated in detail Linear ablation performed from the inferior inferior apex, then along the anterior margin of the scar, extensive RF line This scar was then connected to the mitral annulus to prevent mitral reentry ICD was reprogrammed with lesser attempts at ATP during ventricular tachycardia in favor of earlier cardioversion Details Patient was brought to the EP lab in a fasting state. Written informed consent was obtained prior to the procedure. General anesthesia given. IV antibiotics given Change his medical ICD was interrogated and reprogrammed. Rate-responsive this was turned off. Later antitachycardia pacing was turned off and cardioversions programmed intraoperatively for VT, in preparation for need for cardioversion internally Therapies were turned off Venous access 2 left groin Right femoral artery access Sheaths placed intracardiac echo catheter placed RV and His bundle mapping performed 3-D anatomical mapping of the left ventricle No pericardial effusion, thickened pericardium Inferior apical scar delineated along its inferior most aspect apical aspect and lateral aspect Ventilatory placed in the LV retrogradely Detailed electro-anatomic mapping of the scar Irrigated tip catheter used. RF ablation was performed with up to 40 W. Good power in good stability First the inferior apex was ablated since he has had residual inferior apical exit VT Subsequently the scar was coumadinized and RF ablation was performed along the anterior aspect of this 14 lateral scar. Subsequently scar was then connected to the mitral annulus to prevent mitral reentry Previously in the prior ablation in the mid inferior wall VT ablation had been performed IV Lasix given through the procedure Patient to the procedure well without any acute complications Venous sheaths were closed with Vascade Angio-Seal in the right femoral artery IV heparin used through the procedure Patient remained on ELIQUIS and will continue postprocedure Plan Outpatient initiation of ENTRESTO for management of heart failure
[2021-10-11] MEDS: APIXABAN 5 MG TAB PO SCH (20:19)
[2021-10-11] MEDS ORDERED: ATORVASTATIN 20 MG TAB PO SCH (21:00)
[2021-10-11] MEDS ORDERED: LOSARTAN 25 MG TAB PO SCH (21:00)
[2021-10-12 07:50] VITALS: BP 156/79; RESP 16; TEMP 97.4
--- NOTE | 2021-10-12 08:04 | P.DS ---
Providers Attending physician: Raffi Araiza Primary care physician: Norman Hightower [facility] Course: Patient is doing well. He is resting comfortably in bed Mild discomfort in the right groin Angio-Seal was used to close the right femoral artery access site No hematoma The venous access on the left side were also closed with Vascade no swelling He denies day chest discomfort no dizziness no lightheadedness his respirations are normal no orthopnea On examination he is afebrile 97.4F pulse rate in the 60s blood pressure 156/79 mmHg Heart sounds are stone normal Breath sounds are clear No hematoma in both groins Pump/swelling in the right groin related to Angio-Seal closure Impression Ischemic cardio myopathy with congestive heart failure class III Status post mitral valve replacement Recurrent ventricular tachycardia and ventricular fibrillation Status post VT ablation, scar based mapping, successful visualization of inferolateral- scar Under general anesthesia the patient was not able to tolerate ventricular tachycardia for activation mapping Plan Discharge home today Follow Dr. Bush next week Consideration for ENTRESTO given his heart failure symptoms, consider of losartan From an EP standpoint he needs to continue ELIQUIS for a minimum of 4 weeks post procedure Long-term need for ELIQUIS, that decision will be deferred to Dr. Bush He will continue all his cardiac medications including amiodarone Plan - Discharge Summary Discharge Rx Participant: No New Discharge Prescriptions: Continue RX: Bumetanide [BUMEX] 2 mg PO DAILY RX: Apixaban [Eliquis] 5 mg PO BID #90 tab RX: Losartan [Cozaar] 25 mg PO HS RX: Metoprolol Succinate [Toprol XL] 50 mg PO DAILY RX: Amiodarone [Cordarone] 100 mg PO DAILY RX: Atorvastatin [Lipitor] 20 mg PO HS RX: traMADol HCL [Ultram] 50 mg PO DIRECTED PRN PRN Reason: Pain Discharge Medication List RX: Bumetanide [BUMEX] 2 mg PO DAILY 02/01/16 [History] RX: Apixaban [Eliquis] 5 mg PO BID #90 tab 06/19/18 [Rx] RX: Metoprolol Succinate [Toprol XL] 50 mg PO DAILY 07/16/21 [History] RX: Amiodarone [Cordarone] 100 mg PO DAILY 10/09/21 [History] RX: Atorvastatin [Lipitor] 20 mg PO HS 10/09/21 [History] RX: Losartan [Cozaar] 25 mg PO HS 10/09/21 [History] RX: traMADol HCL [Ultram] 50 mg PO DIRECTED PRN 10/09/21 [History] Follow up Appointment(s)/Referral(s): Abdulaziz Bush MD [STAFF PHYSICIAN] - 1 Week Activity/Diet/Wound Care/Special Instructions: Post EP study - Ablation instructions 1. Keep access sites dry for 2 days. 2. No heavy lifting or straining for 2 days. 3. Avoid bending the hips repeatedly for 2 days. 4. You may go up and down stairs slowly Call if the following is noted 1. Bleeding, increasing swelling or pain at the access sites. 2. Increasing chest discomfort, especially upon taking a deep breath. 3. Increasing shortness of breath, at rest or with exertion. 4. Undue cough / phlegm 5. Difficulty or pain while swallowing. 6. Pain or change in color in the extremities. 7. Fever, chills, rigors. 8. Increasing headache or neurologic symptoms. 9. Dizziness, fainting, palpitations
--- NOTE | 2021-10-12 08:08 | P.PCN ---
Preoperative Diagnosis: [facility] ICD interrogation post procedure reveals P waves 1.3 mV, pacing threshold 0.75 V at 0.5 ms and pacing impedance 430 ohms R waves 3 mV, pacing threshold 1.5 V at 0.5 ms and pacing impedance of 480 ohms High-voltage impedance of 69 ohms Normal battery voltage Normal device function
[2021-10-12] MEDS ORDERED: METOPROLOL SUCCINATE (ER) 50 MG TAB.ER.24H PO SCH (09:00)
[2021-10-12] MEDS ORDERED: BUMETANIDE 1 MG TAB PO SCH (09:00)
[2021-10-12] MEDS ORDERED: AMIODARONE 100 MG TAB PO SCH (09:00)
[2021-10-12] MEDS: APIXABAN 5 MG TAB PO SCH (09:46)
== END 2021-10-12 10:05 | disposition home or self-care (01) ==
LOC: CATHEP 10:01 → 6NMEDSUR 17:20 → CATHEP 10-12 10:05
PROVIDERS: ATTEND Internal Medicine Clinical Cardiac Electrophysiology
DX: I47.2 Ventricular tachycardia (principal); I25.5 Ischemic cardiomyopathy; E78.5 Hyperlipidemia, unspecified; I27.20 Pulmonary hypertension, unspecified; I48.91 Unspecified atrial fibrillation; I10 Essential (primary) hypertension; I25.2 Old myocardial infarction; I08.1 Rheumatic disorders of both mitral and tricuspid valves; F32.9 Major depressive disorder, single episode, unspecified; F41.9 Anxiety disorder, unspecified; Z79.01 Long term (current) use of anticoagulants; Z95.4 Presence of other heart-valve replacement; Z95.1 Presence of aortocoronary bypass graft; Z82.49 Family history of ischemic heart disease and other diseases of the circulatory system; Z79.899 Other long term (current) drug therapy; Z87.891 Personal history of nicotine dependence
CPT/HCPCS: 93662; 93654; C1760 ×2; C1894; C1769 ×2; C1730; C1731; C1759; C1732; J2250; J1644 ×3; J1100; J1940; J2405; J2001; J3010; J0131; J2370; J0330; J2704; 93283

== ENCOUNTER → 2021-11-28 | Outpatient (CLI) | payer MEDICARE ==
[2021-11-28 19:54] LABS: African American GFR (CKD) 60.7 (60.0-200.0); Anion Gap 11.6 mmol/L (10.00-18.00); BUN/Creat Ratio 13.57 Ratio (12.00-20.00); Calcium 9.5 mg/dL (8.7-10.3); Carbon Dioxide 24.4 mmol/L (20.0-27.5); Non-African American GFR(CKD) 52.4 (60.0-200.0)
== END | disposition home or self-care (01) ==
LOC: LABWHC1 13:42
PROVIDERS: ATTEND Nurse Practitioner
DX: I10 Essential (primary) hypertension (principal); I25.5 Ischemic cardiomyopathy
CPT/HCPCS: 36415; 80048

== ENCOUNTER → 2022-04-16 | Outpatient (CLI) | payer MEDICARE ==
[2022-04-16 23:11] LABS: ALT 30 U/L (10-49); AST 26 U/L (14-35); African American GFR (CKD) 56.3 (60.0-200.0); Albumin 4.6 g/dL (3.8-4.9); Albumin/Globulin Ratio 1.42 (1.60-3.17); Alkaline Phosphatase 80 U/L (41-126); BUN/Creat Ratio 14.03 Ratio (12.00-20.00); Blood Urea Nitrogen 20.9 mg/dL (9.0-27.0); Calcium 9.5 mg/dL (8.7-10.3); Carbon Dioxide 22.6 mmol/L (20.0-27.5); Chloride 101 mmol/L (96-109); Chol/HDL Ratio 2.09 Ratio; Globulin 3.3 g/dL (1.6-3.3); Glucose 120 mg/dL (70-110); LDL Cholesterol,Calculated 75.2 mg/dL (0.0-131.0); Non-African American GFR(CKD) 48.6 (60.0-200.0); Sodium 138 mmol/L (135-145); Total Protein 7.9 g/dL (6.2-8.2); VLDL Calculation 12.32 mg/dL (5.00-40.00)
== END | disposition home or self-care (01) ==
LOC: LABWHC1 14:51
PROVIDERS: ATTEND Nurse Practitioner
DX: I10 Essential (primary) hypertension (principal)
CPT/HCPCS: 36415; 80053; 80061; 84443

== ENCOUNTER → 2022-10-03 | Outpatient (CLI) | payer MEDICARE ==
--- NOTE | 2022-10-03 12:39 | XR ---
EXAMINATION TYPE: XR cervical spine comp DATE OF EXAM: 10/03/2022 CLINICAL HISTORY: pain COMPARISON: NONE TECHNIQUE: Frontal, lateral, oblique, swimmers, and open mouth view of the cervical spine are obtaine d. FINDINGS: The cervical spine is visualized in its entirety from C1 thru the top of T1 level. It is s atisfactory in alignment without evidence of acute fracture or dislocation. The pre-vertebral soft t issue appears within normal limits. Moderate multilevel degenerative disc space narrowing and spondyl osis. 2 mm anterior subluxation of C3 on C4 likely chronic in nature. The C1-C2 articulation is unrem arkable on the open mouth view. The oblique images are within normal limits. IMPRESSION: Degenerative changes as noted.
== END | disposition home or self-care (01) ==
LOC: RADXRMAIN 12:00
PROVIDERS: ATTEND Family Medicine
DX: M47.22 Other spondylosis with radiculopathy, cervical region (principal)
CPT/HCPCS: 72050

== ENCOUNTER → 2022-10-24 | Outpatient (CLI) | payer MEDICARE ==
--- NOTE | 2022-10-24 08:13 | US ---
EXAMINATION TYPE: US duplex aorta DATE OF EXAM: 10/24/2022 COMPARISON: NONE CLINICAL HISTORY: C13.6 ENCOUNTER FOR SCREENING FOR CARDIOVASCULAR D. screening, no complaints per pt TECHNIQUE: Multiple sonographic images of the abdominal aorta are obtained. FINDINGS: EXAM MEASUREMENTS: Abdominal Aorta: Proximal: 1.9 x 2.0cm Mid: 1.9 x 2.1cm Distal: 2.0 x 1.9cm Bifurcation: 1.2 x 1.3cm 1.4 x 1.3cm MOVEMENT THERAPIST NOTES: Abdominal aorta well visualized, mild changes, no AAA seen. IMPRESSION: 1. No significant fusiform prominence or aneurysmal dilatation of the abdominal aorta.
== END | disposition home or self-care (01) ==
LOC: RADUSWWP 07:23
PROVIDERS: ATTEND Family Medicine
DX: Z13.6 Encounter for screening for cardiovascular disorders (principal)
CPT/HCPCS: 93979

== ENCOUNTER 2024-01-11 20:33 | Emergency (ER) | payer MEDICARE ==
[2024-01-11 20:59] VITALS: RESP 18; TEMP 98.3
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
[2024-01-11 22:26] LABS: Basophils % (A) 1 %; Eosinophils # (A) 0.2 k/uL (0-0.7); Eosinophils % (A) 4 %; HCT 39.8 % (39.0-53.0); HGB 13.1 gm/dL (13.0-17.5); Lymphocytes # (A) 1.1 k/uL (1.0-4.8); Lymphocytes % (A) 19 %; MCV 90.9 fL (80.0-100.0); Monocytes # (A) 0.5 k/uL (0-1.0); Monocytes % (A) 9 %; Neutrophils # (A) 3.8 k/uL (1.3-7.7); Neutrophils % (A) 66 %; Platelet Count 168 k/uL (150-450); RBC 4.38 m/uL (4.30-5.90); RDW 15.1 % (11.5-15.5); WBC 5.8 k/uL (3.8-10.6)
[2024-01-11 22:35] LABS: INR 1.2 (<1.2); Partial Thromboplastin Time 25.8 sec (22.0-30.0); Prothrombin Time 12.9 sec (10.0-12.5)
[2024-01-11 22:39] LABS: Appearance,Urine Clear (Clear); Bilirubin,Urine Negative (Negative); Blood,Urine Negative (Negative); Color,Urine Yellow; Glucose,Urine (UA) Negative (Negative); Ketones,Urine Negative (Negative); Leukocyte Esterase,Urine Negative (Negative); Nitrite,Urine Negative (Negative); PH, Urine 6.5 (5.0-8.0); Protein,Urine Trace (Negative); Specific Gravity,Urine 1.023 (1.001-1.035); Urobilinogen,Urine <2.0 mg/dL (<2.0)
[2024-01-11 22:41] LABS: Chloride 107 mmol/L (98-107)
[2024-01-11 22:45] LABS: ALT 22 U/L (4-49); AST 35 U/L (17-59); African American GFR (CKD) 45 (>60 ml/min/1.73 sqM); Albumin 4.2 g/dL (3.5-5.0); Alcohol <10 mg/dL; Alkaline Phosphatase 77 U/L (38-126); Amylase 71 U/L (30-110); Anion Gap 10 mmol/L; Blood Urea Nitrogen 23 mg/dL (9-20); C Reactive Protein 0.6 mg/dL (<1.0); Calcium 8.9 mg/dL (8.4-10.2); Carbon Dioxide 23 mmol/L (22-30); Glucose 65 mg/dL (74-99); Lipase 131 U/L (23-300); Non-African American GFR(CKD) 39 (>60 ml/min/1.73 sqM); Potassium 4.4 mmol/L (3.5-5.1); Sodium 140 mmol/L (137-145); Total Bilirubin 0.6 mg/dL (0.2-1.3); Total Protein 7.1 g/dL (6.3-8.2)
[2024-01-11 22:53] LABS: Amphetamine Screen,Urine Not Detected (NotDetected); Cocaine Screen,Urine Not Detected (NotDetected); Opiate Screen,Urine Detected (NotDetected); Phencyclidine Screen,Urine Not Detected (NotDetected)
[2024-01-11 22:54] LABS: Barbiturate Screen,Urine Not Detected (NotDetected); Benzodiazepines Screen,Urine Detected (NotDetected); Methadone Screen, Urine Not Detected (NotDetected); Oxycodone Screen, Urine Not Detected (NotDetected); Tricyclic Antidepressant,Urine Not Detected (NotDetected); Urn Cannabinoid Scrn Detected (NotDetected)
--- NOTE | 2024-01-11 23:50 | CT ---
EXAM: CT Head Without Intravenous Contrast CLINICAL HISTORY: ITS.REASON CT Reason: altered mental status TECHNIQUE: Axial computed tomography images of the head/brain without intravenous contrast. CTDI is 49.27 mGy and DLP is 1138.4 mGy-cm. This CT exam was performed using one or more of the following dose reduction techniques: automated exposure control, adjustment of the mA and/or kV according to patient size, and/or use of iterative reconstruction technique. COMPARISON: No relevant prior studies available. FINDINGS: No acute intracranial hemorrhage. No midline shift or mass effect. The territorial bolanos-white matter differentiation is maintained throughout. Age-related cerebral volume loss. Periventricular and subcortical white matter hypoattenuation, consistent with chronic microangiopathy. The visualized orbits appear grossly unremarkable. The calvarium is intact. The visualized paranasal sinuses and mastoid air cells are grossly clear. IMPRESSION: No acute intracranial hemorrhage, midline shift, or mass effect.
--- NOTE | 2024-01-11 23:56 | CT ---
EXAM: CT Abdomen and Pelvis Without Intravenous Contrast CLINICAL HISTORY: ITS.REASON CT Reason: L abdominal pain TECHNIQUE: Axial computed tomography images of the abdomen and pelvis without intravenous contrast. CTDI is 10.2 mGy and DLP is 669.7 mGy-cm. This CT exam was performed using one or more of the following dose reduction techniques: automated exposure control, adjustment of the mA and/or kV according to patient size, and/or use of iterative reconstruction technique. COMPARISON: No relevant prior studies available. FINDINGS: Lung bases: Unremarkable. No mass. No consolidation. Heart: Cardiomegaly. ABDOMEN: Liver: Unremarkable. Gallbladder and bile ducts: Unremarkable. No calcified stones. No ductal dilation. Pancreas: Unremarkable. No ductal dilation. Spleen: Unremarkable. No splenomegaly. Adrenals: Unremarkable. No mass. Kidneys and ureters: Bilateral renal cysts measuring up to 6.5 cm in the left upper pole. No obstructing stones. No hydronephrosis. Stomach and bowel: Diverticulosis, without acute diverticulitis. No small bowel obstruction. PELVIS: Appendix: Normal appendix. Bladder: Decompressed urinary bladder. No stones. Reproductive: Unremarkable as visualized. ABDOMEN and PELVIS: Intraperitoneal space: Unremarkable. No significant fluid collection. No free air. Bones/joints: Degenerative changes of the spine. No acute fracture. No dislocation. Soft tissues: Unremarkable. Vasculature: Atherosclerotic changes of the aorta. No abdominal aortic aneurysm. Lymph nodes: Unremarkable. No enlarged lymph nodes. Tubes, lines and devices: Pacemaker leads. IMPRESSION: No acute findings in the abdomen or pelvis. No lumbar spine compression fracture.
[2024-01-12 00:42] VITALS: BP 117/91; PULSE 60
== END 2024-01-12 00:43 | disposition home or self-care (01) ==
LOC: EC 20:33
DX: G47.00 Insomnia, unspecified (principal); R10.9 Unspecified abdominal pain; F12.90 Cannabis use, unspecified, uncomplicated; Z91.09 Other allergy status, other than to drugs and biological substances; Z87.891 Personal history of nicotine dependence
CPT/HCPCS: 99285; 36415; 93005; 80053; 82150; 83605; 83690; 84443; 84484; 85025; 85610; 85730; 86140; 81003; 80306; 87636; 70450; 74176; G0480; 80320

== ENCOUNTER → 2024-11-30 | Outpatient (CLI) | payer MEDICARE ==
--- NOTE | 2024-11-30 14:17 | US ---
EXAMINATION TYPE: US kidneys/renal and bladder DATE OF EXAM: 11/30/2024 COMPARISON: CT 01/11/2024 CLINICAL INDICATION: Male, 69 years old with history of N18.32 CHRONIC KIDNEY DISEASE, STAGE 3B; CKD TECHNIQUE: Grayscale imaging of the bilateral kidneys and urinary bladder: FINDINGS: EXAM MEASUREMENTS: Right Kidney: 9.6 x 4.6 x 5.6 cm Left Kidney: 10.7 x 4.2 x 6.0 cm 1 Right Kidney: Renal cyst again seen measuring 3.9 x 3.4 x 3.5 cm Left Kidney: Renal cyst again seen measuring 8.0 x 5.1 x 7.4 cm Bladder: wnl Bilateral Jets seen: Yes There is no evidence for hydronephrosis at this point in time. No nephrolithiasis is seen. No gisela s are identified. The urinary bladder is anechoic. Exam slightly limited due to bowel gas and body habitus. IMPRESSION: 1. No renal calcification, solid renal mass or hydronephrosis. 2. bilateral renal cysts as described above. 3. No significant cortical atrophy. 4. No perinephric fluid collections. 5. Unremarkable urinary bladder. [facility], , 11/30/2024 2:14 PM
== END | disposition home or self-care (01) ==
LOC: RADUSWWP 13:13
PROVIDERS: ATTEND Family Medicine
DX: N18.32 Chronic kidney disease, stage 3b (principal); N28.1 Cyst of kidney, acquired
CPT/HCPCS: 76770

== ENCOUNTER → 2025-05-17 | Outpatient (CLI) | payer MEDICARE ==
[2025-05-17 18:34] LABS: Basophils # (A) 0.04 X 10*3/uL (0.00-0.10); Basophils % (A) 0.6 %; Eosinophils # (A) 0.11 X 10*3/uL (0.04-0.35); Eosinophils % (A) 1.7 %; HCT 42.1 % (39.6-50.0); HGB 13.9 g/dL (13.0-17.0); Immature Grans, Automated 0.50 %; Lymphocytes # (A) 1.19 X 10*3/uL (0.90-5.00); Lymphocytes % (A) 18.7 %; MCH 29.4 pg (27.0-32.0); MCHC 33.0 g/dL (32.0-37.0); MCV 89.2 FL (80.0-97.0); Monocytes # (A) 0.70 X 10*3/uL (0.20-1.00); Monocytes % (A) 11.0 %; NRBC Per 100 WBC 0 X 10*3/uL (0.00-0.01); Neutrophils # (A) 4.31 X 10*3/uL (1.80-7.70); Neutrophils % (A) 67.5 %; Platelet Count 193 X 10*3/uL (140-440); RBC 4.72 X 10*6/uL (4.40-5.60); RDW 15.4 % (11.5-14.5); WBC 6.38 X 10*3/uL (4.50-10.00)
[2025-05-17 18:51] LABS: ALT 32 U/L (10-49); AST 27 U/L (14-35); Albumin 4.2 g/dL (3.8-4.9); Albumin/Globulin Ratio 1.56 Ratio (1.60-3.17); Alkaline Phosphatase 72 U/L (41-126); Anion Gap 12.60 mmol/L (4.00-12.00); BUN/Creat Ratio 8.71 Ratio (12.00-20.00); Blood Urea Nitrogen 12.2 mg/dL (9.0-27.0); Calcium 9.3 mg/dL (8.7-10.3); Carbon Dioxide 19.4 mmol/L (21.6-31.8); Chloride 106 mmol/L (96-109); Globulin 2.7 g/dL (1.6-3.3); Glucose 115 mg/dL (70-110); Magnesium 2.1 mg/dL (1.5-2.4); Potassium 4.1 mmol/L (3.5-5.5); Sodium 138 mmol/L (135-145); Total Protein 6.9 g/dL (6.2-8.2)
[2025-05-17 19:55] LABS: Bilirubin,Urine Negative (Negative); Blood,Urine Negative (Negative); Color,Urine Yellow (Yellow); Ketones,Urine Negative (Negative); Nitrite,Urine Negative (Negative); PH, Urine 7.0; Specific Gravity,Urine 1.019 (1.001-1.030); Urobilinogen,Urine 1.0 E.U./DL
== END | disposition home or self-care (01) ==
LOC: LABWHC1 14:20
PROVIDERS: ATTEND Internal Medicine
DX: N18.32 Chronic kidney disease, stage 3b (principal)
CPT/HCPCS: 36415; 80053; 81003; 82043; 82570; 83735; 84100; 85025